=== PATIENT | female | born 1945 | race African-American/Black ===

== ENCOUNTER 2024-08-01 21:25 | Inpatient (IN) | payer OTHER, MEDICAID ==
[~2024-08-01] VITALS: Ht 157.5 cm; Wt 86.8 kg
[~2024-08-01 21:25] MED LIST: GABA-1308 PO; PRAV20TA3 PO
[2024-08-01] MEDS: AZITHROMYCIN 500MG/ 250ML 250 ML IV ONE (22:00)
[2024-08-01] MEDS: cefTRIAXone 1GM/50ML D5W 50 ML IV ONE (22:00)
[2024-08-01 22:24] LABS: Basophils # (auto) 0.1 10 ^3/uL (0-0.2); Basophils % (auto) 0.7 % (0.0-2.0); Eosinophils # (auto) 0.1 10 ^3/uL (0-0.8); Eosinophils % (auto) 0.4 % (0.0-7.0); Hemoglobin 8.5 g/dL (12.2-16.2); Lymphocytes # (auto) 2.8 10 ^3/uL (0.4-5.4)
[2024-08-01 22:26] LABS: Hematocrit 28.1 % (36.0-46.0); Lymphocytes % (auto) 15.9 % (10.0-50.0); Mean Corpuscular Hemoglobin 27.9 pg (28.0-32.0); Mean Corpuscular Hgb Conc. 30.2 g/dL (32.0-36.0); Mean Corpuscular Volume 92.4 fL (80.0-100.0); Monocytes # (auto) 1.2 10 ^3/uL (0-1.3); Neutrophils # (auto) 13.5 10 ^3/uL (1.6-8.6); Platelet Count (auto) 252 10^3/uL (140-450); Red Blood Cells 3.04 10^6/uL (4.0-5.20); Red Cell Distribution Width 19.1 % (11.8-14.3); White Blood Cell 17.8 10^3/uL (4.4-10.8)
[2024-08-01] MEDS: ALBUTEROL SULF 2.5 MG/0.5ML(0.5%) NEB SOLN NEB ONE (22:26)
[2024-08-01] MEDS: IPRATROPIUM BROM 0.5 MG/2.5ML INH SOL NEB ONE (22:27)
[2024-08-01 22:42] LABS: Albumin 3.6 g/dL (3.2-4.8); Alkaline Phosphatase 417 U/L (46-116); Anion Gap 8 (5-15); Aspartate Aminotransferase 23 U/L (13-40); Bilirubin, Total 0.2 mg/dL (0.2-1.0); Blood Urea Nitrogen 38 mg/dL (9-23); Calcium 8.6 mg/dL (8.7-10.4); Carbon Dioxide 28 mmol/L (20-31); Chloride 99 mmol/L (98-107); Glucose 132 mg/dL (74-106); Potassium 3.6 mmol/L (3.5-5.1); Sodium 135 mmol/L (136-145); Total Protein 6.9 g/dL (5.7-8.2)
[2024-08-01 22:44] LABS: Alanine Aminotransferase < 9 U/L (7-40)
[2024-08-01] MEDS: SODIUM CHLORIDE 0.9% 500 ML IV ONE (23:25)
[2024-08-01] MEDS: ACETAMINOPHEN 500 MG TAB PO ONE (23:29)
[2024-08-01 23:40] VITALS: PULSE 65; RESP 14; O2SAT 96
[2024-08-02] VITALS (27 sets, daily range): BP systolic 95–125; BP diastolic 18–45; PULSE 66–106; RESP 14–26; O2SAT 95–100
[2024-08-02] MEDS: NOREPINEPHRINE 8 MG/250ML KIT 250 ML IV SCH (02:00)
[2024-08-02] MEDS: ASPirin 325 MG TAB PO ONE (02:23)
[2024-08-02 02:39] LABS: COVID19 ANTIGEN SOFIA FIA NEGATIVE (NEGATIVE)
[2024-08-02 02:42] LABS: Rapid Influenza A Negative (Negative); Rapid Influenza B Negative (Negative)
[2024-08-02] MEDS ORDERED: ONDANSETRON HCL 4 MG/2 ML VIAL IV PRN (06:00)
[2024-08-02] MEDS ORDERED: NITROGLYCERIN 0.4 MG SL TAB SL PRN (06:00)
[2024-08-02] MEDS ORDERED: ALBUTEROL SULF 2.5 MG/0.5ML(0.5%) NEB SOLN NEB PRN (06:00)
[2024-08-02] MEDS ORDERED: DEXTROSE (50%) 50ML SYRG IV PRN (06:00)
[2024-08-02] MEDS ORDERED: MORPHINE SULFATE INJ 2 MG/ml SYRG IV PRN (06:00)
[2024-08-02] MEDS: ACCU-CHEK COMFORT CURVE STRIP VI SCH (06:29)
[2024-08-02] MEDS: InsuLIN REG 1unit/0.01ml Soln (100units/ml) SC SCH (06:31)
[2024-08-02] MEDS: ASPirin 81 mg TAB PO SCH (10:20)
[2024-08-02] MEDS ORDERED: VANCOMYCIN PER PHARMACY 0 MG IV SCH (12:30)
[2024-08-02] MEDS: MIDODRINE HCL 10 MG TAB PO ONE (14:23)
[2024-08-02] MEDS: MIDODRINE HCL 10 MG TAB PO SCH (18:31)
[2024-08-02] MEDS: VANCOMYCIN 1GM/200ML PREMIX 200 ML IV ONE (18:34)
[2024-08-02] MEDS: SODIUM CHL 0.9% 1000 ML BAG XX ONE (19:01)
[2024-08-02] MEDS: EPOETIN ALFA-EPBX 10,000 UNIT/1ML VIAL SC ONE (21:18)
[2024-08-02] MEDS: ATORVASTATIN 20 MG TAB PO SCH (21:34)
[2024-08-02] MEDS: cefTRIAXone 1GM/50ML D5W 50 ML IV SCH (21:34)
[2024-08-03] VITALS (34 sets, daily range): BP systolic 91–185; BP diastolic 28–73; PULSE 64–88; RESP 13–25; TEMP 97.5–98.8; O2SAT 93–100
[2024-08-03 04:00] LABS: Basophils # (auto) 0.1 10 ^3/uL (0-0.2); Basophils % (auto) 0.7 % (0.0-2.0); Eosinophils # (auto) 0.3 10 ^3/uL (0-0.8); Eosinophils % (auto) 2.1 % (0.0-7.0); Hematocrit 27.9 % (36.0-46.0); Hemoglobin 8.8 g/dL (12.2-16.2); Lymphocytes # (auto) 1.2 10 ^3/uL (0.4-5.4); Lymphocytes % (auto) 7.1 % (10.0-50.0); Mean Corpuscular Hemoglobin 28.7 pg (28.0-32.0); Mean Corpuscular Hgb Conc. 31.5 g/dL (32.0-36.0); Monocytes # (auto) 1.5 10 ^3/uL (0-1.3); Monocytes % (auto) 9.1 % (0.0-12.0); Neutrophils # (auto) 13.4 10 ^3/uL (1.6-8.6); Platelet Count (auto) 321 10^3/uL (140-450); Red Blood Cells 3.06 10^6/uL (4.0-5.20); Red Cell Distribution Width 19.4 % (11.8-14.3); White Blood Cell 16.6 10^3/uL (4.4-10.8)
[2024-08-03 04:15] LABS: Albumin 3.7 g/dL (3.2-4.8); Alkaline Phosphatase 400 U/L (46-116); Anion Gap 9 (5-15); Aspartate Aminotransferase 22 U/L (13-40); BUN/Creatinine Ratio 5.5 (10.0-20.0); Bilirubin, Total 0.2 mg/dL (0.2-1.0); Carbon Dioxide 31 mmol/L (20-31); Chloride 101 mmol/L (98-107); Glucose 132 mg/dL (74-106); Potassium 3.6 mmol/L (3.5-5.1); Sodium 141 mmol/L (136-145)
[2024-08-03 04:20] LABS: Alanine Aminotransferase < 9 U/L (7-40); Blood Urea Nitrogen 24 mg/dL (9-23)
[2024-08-03] MEDS: AZITHROMYCIN 500MG/ 250ML 250 ML IV SCH (09:37)
[2024-08-03] MEDS: POLYETHYLENE GLYCOL 17 GM PWDR PO ONE (12:31)
[2024-08-03] MEDS: MIDODRINE HCL 10 MG TAB PO SCH (18:11)
[2024-08-04] VITALS (8 sets, daily range): BP systolic 102–118; BP diastolic 36–61; PULSE 64–76; RESP 16–19; TEMP 97.5–99; O2SAT 90–96
[2024-08-04] MEDS ORDERED: CINA90TA10 PO (00:51)
[2024-08-04] MEDS ORDERED: CHOL20007 PO (00:51)
[2024-08-04] MEDS ORDERED: SEVE800T20 PO (00:51)
[2024-08-04] MEDS ORDERED: POLY335015 PO (00:51)
[2024-08-04] MEDS ORDERED: MIDO5TAB4 PO (00:51)
[2024-08-04 06:23] LABS: Basophils # (auto) 0.1 10 ^3/uL (0-0.2); Eosinophils # (auto) 0.3 10 ^3/uL (0-0.8); Eosinophils % (auto) 1.8 % (0.0-7.0); Hemoglobin 8.5 g/dL (12.2-16.2)
[2024-08-04 06:25] LABS: Basophils % (auto) 0.3 % (0.0-2.0); Hematocrit 27.2 % (36.0-46.0); Lymphocytes # (auto) 1.6 10 ^3/uL (0.4-5.4); Mean Corpuscular Hemoglobin 28.7 pg (28.0-32.0); Mean Corpuscular Hgb Conc. 31.4 g/dL (32.0-36.0); Mean Corpuscular Volume 91.5 fL (80.0-100.0); Monocytes # (auto) 1.5 10 ^3/uL (0-1.3); Monocytes % (auto) 10.5 % (0.0-12.0); Neutrophils # (auto) 10.9 10 ^3/uL (1.6-8.6); Neutrophils % (auto) 76.4 % (37.0-80.0); Platelet Count (auto) 314 10^3/uL (140-450); Red Blood Cells 2.97 10^6/uL (4.0-5.20); Red Cell Distribution Width 19.4 % (11.8-14.3); White Blood Cell 14.3 10^3/uL (4.4-10.8)
[2024-08-04 06:33] LABS: Anion Gap 10 (5-15); Carbon Dioxide 29 mmol/L (20-31); Chloride 103 mmol/L (98-107); Potassium 3.9 mmol/L (3.5-5.1); Sodium 142 mmol/L (136-145)
[2024-08-04 06:39] LABS: BUN/Creatinine Ratio 4.8 (10.0-20.0); Blood Urea Nitrogen 29 mg/dL (9-23); Glucose 87 mg/dL (74-106)
[2024-08-04] MEDS: AZITHROMYCIN 250 MG TAB PO SCH (09:51)
[2024-08-04] MEDS: VANCOMYCIN 500 MG in D5W 5% 100 ML IV ONE (16:40)
[2024-08-05] VITALS (8 sets, daily range): BP systolic 94–161; BP diastolic 35–61; PULSE 55–60; RESP 14–18; TEMP 98–98.6; O2SAT 92–98
[2024-08-05] MEDS: ACETAMINOPHEN 325 MG TAB PO PRN (04:08)
[2024-08-05 06:44] LABS: Chloride 102 mmol/L (98-107); Potassium 3.9 mmol/L (3.5-5.1); Sodium 142 mmol/L (136-145)
[2024-08-05 06:45] LABS: Anion Gap 10 (5-15); Carbon Dioxide 30 mmol/L (20-31)
[2024-08-05 06:51] LABS: BUN/Creatinine Ratio 5.6 (10.0-20.0); Glucose 89 mg/dL (74-106)
[2024-08-05 06:53] LABS: Blood Urea Nitrogen 41 mg/dL (9-23)
[2024-08-05 07:08] LABS: Eosinophils # (auto) 0.2 10 ^3/uL (0-0.8); Hemoglobin 8.4 g/dL (12.2-16.2)
[2024-08-05 07:09] LABS: Basophils # (auto) 0.1 10 ^3/uL (0-0.2); Basophils % (auto) 0.4 % (0.0-2.0); Eosinophils % (auto) 1.3 % (0.0-7.0); Hematocrit 27.3 % (36.0-46.0); Lymphocytes # (auto) 1.6 10 ^3/uL (0.4-5.4); Lymphocytes % (auto) 9.9 % (10.0-50.0); Mean Corpuscular Hemoglobin 28.6 pg (28.0-32.0); Mean Corpuscular Hgb Conc. 30.7 g/dL (32.0-36.0); Monocytes # (auto) 1.6 10 ^3/uL (0-1.3); Monocytes % (auto) 9.9 % (0.0-12.0); Neutrophils # (auto) 12.4 10 ^3/uL (1.6-8.6); Neutrophils % (auto) 78.5 % (37.0-80.0); Platelet Count (auto) 326 10^3/uL (140-450); Red Blood Cells 2.93 10^6/uL (4.0-5.20); Red Cell Distribution Width 19.1 % (11.8-14.3); White Blood Cell 15.8 10^3/uL (4.4-10.8)
[2024-08-06] VITALS (7 sets, daily range): BP systolic 104–150; BP diastolic 53–60; PULSE 50–79; RESP 16–21; TEMP 97.4–99; O2SAT 96–98
[2024-08-06 06:38] LABS: Basophils # (auto) 0 10 ^3/uL (0-0.2); Hemoglobin 8.8 g/dL (12.2-16.2); Mean Corpuscular Hgb Conc. 30.8 g/dL (32.0-36.0); Red Cell Distribution Width 19.2 % (11.8-14.3)
[2024-08-06 06:40] LABS: Anion Gap 6 (5-15); Carbon Dioxide 31 mmol/L (20-31); Chloride 102 mmol/L (98-107); Potassium 3.5 mmol/L (3.5-5.1); Sodium 139 mmol/L (136-145)
[2024-08-06 06:41] LABS: Basophils % (auto) 0.3 % (0.0-2.0); Eosinophils # (auto) 0.3 10 ^3/uL (0-0.8); Hematocrit 28.4 % (36.0-46.0); Lymphocytes # (auto) 1.3 10 ^3/uL (0.4-5.4); Lymphocytes % (auto) 9.7 % (10.0-50.0); Mean Corpuscular Hemoglobin 28.9 pg (28.0-32.0); Mean Corpuscular Volume 93.8 fL (80.0-100.0); Monocytes # (auto) 1.1 10 ^3/uL (0-1.3); Monocytes % (auto) 8.5 % (0.0-12.0); Neutrophils # (auto) 10.5 10 ^3/uL (1.6-8.6); Neutrophils % (auto) 79.5 % (37.0-80.0); Platelet Count (auto) 296 10^3/uL (140-450); Red Blood Cells 3.03 10^6/uL (4.0-5.20); White Blood Cell 13.2 10^3/uL (4.4-10.8)
[2024-08-06 06:46] LABS: BUN/Creatinine Ratio 4.3 (10.0-20.0); Blood Urea Nitrogen 21 mg/dL (9-23); Glucose 82 mg/dL (74-106)
[2024-08-06] MEDS ORDERED: SODIUM CHL 0.9% 1000 ML BAG XX ONE (07:00)
[2024-08-06] MEDS ORDERED: VANCOMYCIN 1GM/200ML PREMIX 200 ML IV ONE (16:00)
[2024-08-06] MEDS ORDERED: EPOETIN ALFA-EPBX 4,000 UNIT/ML VIAL SC ONE (21:00)
== END 2024-08-06 18:02 | disposition home or self-care (01) | DRG 871 ==
LOC: ER 21:25 → EDBD 21:25 → OVERFLOW 08-02 05:50 → TELE-EAST 08-03 22:21
PROVIDERS: ADMIT Nurse Practitioner; ATTEND Internal Medicine
PROC: 5A1D70Z Performance of Urinary Filtration, Intermittent, Less than 6 Hours Per Day (ICD-10-PCS; principal; 2024-08-02)
PROC: 5A1D70Z Performance of Urinary Filtration, Intermittent, Less than 6 Hours Per Day (ICD-10-PCS; 2024-08-05)
PROC: 5A1D70Z Performance of Urinary Filtration, Intermittent, Less than 6 Hours Per Day (ICD-10-PCS; 2024-08-06)
DX: A41.59 Other Gram-negative sepsis (principal); I21.A1 Myocardial infarction type 2; N18.6 End stage renal disease; I50.33 Acute on chronic diastolic (congestive) heart failure; J96.01 Acute respiratory failure with hypoxia; R65.21 Severe sepsis with septic shock; J15.69 Pneumonia due to other Gram-negative bacteria; J15.9 Unspecified bacterial pneumonia; I13.2 Hypertensive heart and chronic kidney disease with heart failure and with stage 5 chronic kidney disease, or end stage renal disease; E11.22 Type 2 diabetes mellitus with diabetic chronic kidney disease; D63.1 Anemia in chronic kidney disease; E66.01 Morbid (severe) obesity due to excess calories; I27.20 Pulmonary hypertension, unspecified; G90.89 Other disorders of autonomic nervous system; Z74.01 Bed confinement status; Z99.2 Dependence on renal dialysis; Z88.0 Allergy status to penicillin; Z79.4 Long term (current) use of insulin; Z68.35 Body mass index [BMI] 35.0-35.9, adult
CPT/HCPCS: 36415; 71045; 80048; 80053; 80202; 82962; 83605; 83880; 84484; 85025; 87040; 87081; 87340; 87426; 87804; 90935; 93005; 96365; 99291; G0378; J1815; J7060

== ENCOUNTER 2025-02-17 16:57 | Inpatient (IN) | payer OTHER, MEDICAID ==
[~2025-02-17] VITALS: Ht 157.5 cm; Wt 84.1 kg
[~2025-02-17 16:57] MED LIST changes: +CHOL20007 PO; +CINA90TA10 PO; +MIDO5TAB4 PO; +POLY335015 PO; +SEVE800T20 PO
--- NOTE | 2025-02-17 17:32 | ED.PDOC ---
History of Present Illness HPI Comments This is a 79-year-old female who comes in with chief complaint of generalized weakness as well as some shortness for breath. The patient is currently on dialysis and states that she was dialyzed yesterday. They took off approximately 1.5 L and the patient states that she has been getting more weakness at this point. She states that the weakness started a few days ago but worsened in the past 24 hours. According to the coffee attendant, the patient was unable to get up and walk around at this point. When the paramedics arrived, the patient's blood pressure was 86/44. The patient was given 300 cc of normal saline and the pressure came up to 105/41. EN route, the patient's Accu-Chek was 133. The patient was able to answer all questions appropriately but still states that she is short of breath as well as having some generalized weakness. Chief Complaint: Shortness of Breath Time Seen by MD: 17:00 Primary Care Provider: unknown Reviewed Notes: Nurses Notes, Unscrambler Notes, Medications, Allergies (Allergies to penicillin) Allergies: Coded Allergies: Penicillins (Verified Allergy, Unknown, HIVES, 06/28/24) Home Meds Reported Medications Polyethylene Glycol 3350 (Miralax) 17 Gm Pow, 17 GM PO, POW 08/04/24 Midodrine Hcl (Midodrine Hcl) 5 Mg Tab, 5 MG PO, TAB 08/04/24 Cinacalcet HCl (Cinacalcet Hydrochloride) 90 Mg Tab, 90 MG PO, TAB 08/04/24 Sevelamer Hydrochloride (Sevelamer Hydrochloride) 800 Mg Tab, 800 MG PO, TAB 08/04/24 Cholecalciferol (VITAMIN D3) 2,000 Unit Tab, 1 TAB PO DAILY, #30 TAB 5 Refills 08/04/24 Pravastatin Sodium (PRAVACHOL TABLET) 20 Mg Tb, 1 TAB PO QPM, #90 TAB 1 Refill 06/29/24 Gabapentin (Gabapentin) 100 Mg Cap, 100 MG PO BID for 30 Days, MG 06/29/24 Information Source: Patient, Emergency Med Personnel Mode of Arrival: EMS Severity: Moderate Timing: Days Duration: Since onset Prehospital treatment: Accucheck (133), Separator Inserter, IVF, Other (Normal saline bolus of 300 cc) Associated signs and symptoms Generalized weakness but no chest pain, nausea or vomiting Past Medical History PAST MEDICAL HISTORY: CHF, DM, ESRD, HTN Surgical History (Other): Left knee surgery, dialysis shunt 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 History Family History Family History: Family hx of DM, Family hx of Cancer Social History Smoker: Non-Smoker Alcohol: Denies ETOH Use Drugs: Denies Drug Use Lives In: Home, Assisted Care Constitutional: reports: weakness; denies: chills, diaphoresis, fatigue, fever, malaise, sweats, others EENTM: denies: blurred vision, double vision, ear bleeding, ear discharge, ear drainage, ear pain, ear ringing, eye pain, eye redness, hearing loss, mouth pain, mouth swelling, nasal discharge, nose bleeding, nose congestion, nose pain, photophobia, tearing, throat pain, throat swelling, voice changes, others Respiratory: reports: shortness of breath; denies: cough, hemoptysis, orthopnea, SOB at rest, SOB with excertion, stridor, wheezing, others Cardiovascular: denies: chest pain, dizzy spells, diaphoresis, Dyspnea on exertion, edema, irregular heart beat, left arm pain, lightheadedness, palpitations, PND, syncope, others Gastrointestinal: denies: abdomen distended, abdominal pain, blood streaked bowels, constipated, diarrhea, dysphagia, difficulty swallowing, hematemesis, melena, nausea, poor appetite, poor fluid intake, rectal bleeding, rectal pain, vomiting, others Genitourinary: denies: abnormal vagina bleeding, burning, dyspareunia, dysuria, flank pain, frequency, hematuria, incontinence, pain, , vagina discharge, urgency, others Neurological: denies: dizziness, fainting, headache, left sided numbness, left sided weakness, numbness, paresthesia, pre-existing deficit, right sided numbness, right sided weakness, seizure, speech problems, tingling, tremors, weakness, others Musculoskeletal: denies: back pain, gout, joint pain, joint swelling, muscle pain, muscle stiffness, neck pain, others Integumetry: denies: bruises, change in color, change in hair/nails, dryness, laceration, lesions, lumps, rash, wounds, others Allergic/Immunocompromised: denies: Difficulty Healing, Frequent Infections, Hives, Itching, others Hematologic/Lymphatic: denies: anemia, blood clots, easy bleeding, easy bruising, swollen glands, others Endocrine: denies: excessive hunger, excessive sweating, excessive thirst, excessive urination, flushing, intolerance to cold, intolerance to heat, unexplained weight gain, unexplained weight loss, others Psychiatric: denies: anxiety, bipolar disorder, depression, hopeless, panic disorder, schizophrenia, sleepless, suicidal, others Physical Exam General Appearance: Moderate Distress HEENT: Pale Conjuntivae (L), Pale Conjuntivae (R), Pharynx Normal, TMs Normal Neck: Full Range of Motion, Non-Tender, Normal, Normal Inspection Respiratory: Chest Non-Tender, Lungs Clear, No Accessory Muscle Use, No Respiratory Distress, Normal Breath Sounds Cardiovascular: No Edema, No JVD, No Murmur, No Gallop, Normal Peripheral Pulses, Regular Rate/Rhythm Breast Exam: Deferred Gastrointestinal: No Organomegaly, Non Tender, No Pulsatile Mass, Normal Bowel Sounds, Soft Genitalia: Deferred Pelvic: Deferred Rectal: Deferred Extremities: No calf tenderness, Normal capillary refill, No pedal edema, Other (Fistula to the left arm) Musculoskeletal : Apperance: Normal Neurologic: ct manager II-XII nml as Tested, Motor Weakness, Normal Affect, Normal Mood, No Sensory Deficits Cerebellar Function: Unable to Test Reflexes: Normal Skin: Dry, Pallor, Warm Lymphatic: No Adenopathy Was a procedure done? Was a procedure done?: No EKG EKG : Pulse Rate (adult): 77 [place]: LAD Cardiac Rhythm: NSR ST: Nonsp (Poor R-wave progression) Differential Dx Considerations may include: Generalized weakness, sepsis, UTI, dehydration X-Ray, Labs, Meds, VS Vital Signs Date Time Temp Pulse Resp B/P (MAP) Pulse Ox O2 Delivery O2 Flow Rate FiO2 02/17/25 18:10 71 28 97 Nasal Cannula* 2 28 02/17/25 17:55 98.4 71 28 93/36 (55) 97 98.4 02/17/25 17:32 77 02/17/25 17:20 74 02/17/25 17:04 98.4 75 20 99/41 (60) 97 98.4 02/17/25 17:01 77 Lab Test 02/17/25 20:50 02/17/25 18:28 02/17/25 17:25 Range/Units Troponin I High Sensitivity 46 *H 51 *H 60 *H </=34 ng/L White Blood Count 9.6 4.4-10.8 10^3/uL Red Blood Count 2.85 L 4.0-5.20 10^6/uL Hemoglobin 8.0 L 12.2-16.2 g/dL Hematocrit 26.2 L 36.0-46.0 % Mean Corpuscular Volume 91.6 80.0-100.0 fL Mean Corpuscular Hemoglobin 28.1 28.0-32.0 pg Mean Corpuscular Hemoglobin Concent 30.6 L 32.0-36.0 g/dL Red Cell Distribution Width 18.8 H 11.8-14.3 % Platelet Count 269 140-450 10^3/uL Mean Platelet Volume 7.9 6.9-10.8 fL Neutrophils (%) (Auto) 76.3 37.0-80.0 % Lymphocytes (%) (Auto) 12.4 10.0-50.0 % Monocytes (%) (Auto) 9.8 0.0-12.0 % Eosinophils (%) (Auto) 1.1 0.0-7.0 % Basophils (%) (Auto) 0.4 0.0-2.0 % Neutrophils # (Auto) 7.3 1.6-8.6 10 ^3/uL Lymphocytes # (Auto) 1.2 0.4-5.4 10 ^3/uL Monocytes # (Auto) 0.9 0-1.3 10 ^3/uL Eosinophils # (Auto) 0.1 0-0.8 10 ^3/uL Basophils # (Auto) 0 0-0.2 10 ^3/uL Nucleated Red Blood Cells 0.2 % Sodium Level 142 136-145 mmol/L Potassium Level 2.7 L 3.5-5.1 mmol/L Chloride Level 98 98-107 mmol/L Carbon Dioxide Level 31 20-31 mmol/L Anion Gap 13 5-15 Blood Urea Nitrogen 18 9-23 mg/dL Creatinine 4.01 H 0.550-1.02 mg/dL Glomerular Filtration Rate Calc 11 >90 mL/min BUN/Creatinine Ratio 4.5 L 10.0-20.0 Serum Glucose 107 H 74-106 mg/dL Calcium Level 8.6 L 8.7-10.4 mg/dL B-Type Natriuretic Peptide 247.53 0-100 pg/mL EXAMINATION: AP portable chest radiograph IMPRESSION: 1. Cardiomegaly with mild interstitial pulmonary edema with no pleural effusion 2. The osseous structures appears to be mildly dense suggesting a possible early blastic changes The CBC shows a hemoglobin of 8 and hematocrit of 26.2 The patient's troponin levels are elevated at 60, 51 and 46 respectively At this time, the chemistry panel shows a potassium of 2.7 The patient was being given a potassium K rider The BNP is 247.53 At this time we are going to admit the patient to the hospitalist We did contact [place] and they gave us authorization for admission The authorization #[id number] IV Hep-Lock was established Images Reviewed?: Images reviewed and evaluated by me Time of 1ST Reevaluation: 17:32 Reevaluation 1ST: Unchanged Patient Education/Counseling: Diagnosis, Treatment, Prognosis Family Education/Counseling: No Family Present Departure 1 Departure Time of Disposition: 21:45 Impression: Primary Impression: End stage renal disease on dialysis Additional Impressions: Hypotension Qualified Codes: I95.9 - Hypotension, unspecified Generalized weakness Disposition: ADMITTED INPATIENT Admit to: Tele Condition: Fair Critical Care Note Critical Care Time?: Yes (35 min-critical care time only) Stability Stability form required: Yes Unstable for transfer: Telemetry monitoring (Telemetry monitoring required), ED Physician Assesment (Clinical assesment) Heart Score Heart Score: Heart Score Response (Comments) Value History N/A 0 EKG N/A 0 Age N/A 0 Risk Factors N/A 0 Troponin N/A 0 Total 0 I personally scribed for SHELBY SMALL MD ([email or web address]) on 02/17/25 at 18:33. Electronically submitted by Alyce Marsh (MARY). SHELBY SMALL MD February 17, 2025 17:32
[2025-02-17 17:47] LABS: Basophils # (auto) 0 10 ^3/uL (0-0.2); Basophils % (auto) 0.4 % (0.0-2.0); Eosinophils # (auto) 0.1 10 ^3/uL (0-0.8); Eosinophils % (auto) 1.1 % (0.0-7.0); Hematocrit 26.2 % (36.0-46.0); Mean Corpuscular Hgb Conc. 30.6 g/dL (32.0-36.0); Nucleated Red Blood Cells % 0.2 %
[2025-02-17 17:48] LABS: Lymphocytes # (auto) 1.2 10 ^3/uL (0.4-5.4); Lymphocytes % (auto) 12.4 % (10.0-50.0); Mean Corpuscular Hemoglobin 28.1 pg (28.0-32.0); Mean Corpuscular Volume 91.6 fL (80.0-100.0); Monocytes # (auto) 0.9 10 ^3/uL (0-1.3); Monocytes % (auto) 9.8 % (0.0-12.0); Neutrophils # (auto) 7.3 10 ^3/uL (1.6-8.6); Neutrophils % (auto) 76.3 % (37.0-80.0); Platelet Count (auto) 269 10^3/uL (140-450); Red Blood Cells 2.85 10^6/uL (4.0-5.20); Red Cell Distribution Width 18.8 % (11.8-14.3); White Blood Cell 9.6 10^3/uL (4.4-10.8)
[2025-02-17 17:51] LABS: Chloride 98 mmol/L (98-107); Sodium 142 mmol/L (136-145)
[2025-02-17 17:53] LABS: Anion Gap 13 (5-15)
--- NOTE | 2025-02-17 17:54 | ECG ---
[facility] Test Date: 2025-02-17 Test Time: 17:01:51 Pat Name: TERENCE NEIL Department: ED Room: Gender: F Keg Header: gp : 1945 Requested By: SHELBY SMALL Order Number: [id number] Reading MD: Tomas Flores Measurements Intervals [place] Rate: 77 P: -66 [place]: 341 QRS: -37 QRSD: 101 T: 107 QT: 444 QTc: 503 Interpretive Statements Sinus or ectopic atrial rhythm Atrial premature complexes Prolonged [place] interval Left axis deviation Abnormal R-wave progression, late transition Abnormal T, consider ischemia, lateral leads Prolonged QT interval Electronically Signed On 02-17-2025 21:05:42 PDT by Tomas Flores Please click the below link to view image of tracing.
[2025-02-17 17:58] LABS: BUN/Creatinine Ratio 4.5 (10.0-20.0); Blood Urea Nitrogen 18 mg/dL (9-23)
[2025-02-17 18:05] LABS: Carbon Dioxide 31 mmol/L (20-31); Potassium 2.7 mmol/L (3.5-5.1)
[2025-02-17 18:06] LABS: Calcium 8.6 mg/dL (8.7-10.4); Glucose 107 mg/dL (74-106)
--- NOTE | 2025-02-17 18:08 | DVH ---
EXAMINATION: AP portable chest radiograph CLINICAL HISTORY: sob COMPARISON: XY CHEST PORTABLE on DOS: 08/03/24, XY CHEST PORTABLE on DOS: 08/01/24, XY CHEST PORTABLE on DOS: 06/28/24 FINDINGS: Negative AP chest. There is cardiomegaly with mild interstitial pulmonary edema. There is no evidence of airspace consol idation. There is uncoiling atherosclerotic change thoracic aorta. The bony thorax demonstrate mildly blastic changes. There is osteoarthropathy of both AC joint.. IMPRESSION: 1. Cardiomegaly with mild interstitial pulmonary edema with no pleural effusion 2. The osseous structures appears to be mildly dense suggesting a possible early blastic changes
[2025-02-17 18:10] VITALS: PULSE 71; RESP 28; O2SAT 97
[2025-02-17 19:05] VITALS: PULSE 85; RESP 20; O2SAT 97
[2025-02-17] MEDS ORDERED: HYDROcodone-ACET 5/325MG TAB PO PRN (22:15)
[2025-02-17] MEDS ORDERED: ACETAMINOPHEN 325 MG TAB PO PRN (22:15)
[2025-02-17] MEDS ORDERED: DOCUSATE SOD 100 MG CAP PO PRN (22:15)
[2025-02-17] MEDS ORDERED: ONDANSETRON HCL 4 MG/2 ML VIAL IV PRN (22:15)
[2025-02-17] MEDS ORDERED: DEXTROSE (50%) 50ML SYRG IV PRN (22:15)
[2025-02-17] MEDS: POTASSIUM CHL 20MEQ/100ML 100 ML IV ONE (22:15)
[2025-02-17] MEDS: MIDODRINE HCL 10 MG TAB PO ONE (22:15)
[2025-02-17] MEDS ORDERED: NITROGLYCERIN 0.4 MG SL TAB SL PRN (23:30)
[2025-02-17] MEDS ORDERED: MORPHINE SULFATE INJ 2 MG/ml SYRG IV PRN (23:30)
--- NOTE | 2025-02-17 23:30 | DVHHP2 ---
History of Present Illness Reason for Visit: End stage renal disease on dialysis History of Present Illness The patient is a 79-year-old female with past medical history of CHF, DM, hypertension, and end-stage renal disease on hemodialysis presented to [facility] ED with complaint of shortness of breaths. Patient reports symptoms progressively get worse with generalized weakness getting worse that prompted this visit. Patient was dialyzed yesterday and took off approximately 1.5 L, unable to get up and walk around at this point, patient's blood pressure was 86/44. The patient was given 300 cc of normal saline and the pressure came up to 105/41. Patient was seen and evaluated in the ED, laboratory data shows blood pressure 9.6, hemoglobin 8.0, hematocrit 26.2, platelets 269, sodium 142, potassium 2.7, BUN 18, creatinine 4.01, glucose 107, troponin 46, calcium 8.6, BNP 247.53, blood pressure 110/41, heart rate 80, temperature 97.8 F, O2 saturation 97% on oxygen. Please see medication orders section in the computer. On my assessment, patient denied chest pain, no headache, no dizziness, no diaphoresis, no shortness of breath, no nausea, no vomiting, no fever, no chills. Patient was admitted for further evaluation and medical management. Past Medical History CHF, DM, ESRD, HTN Past Surgical History Left knee surgery, Dialysis shunt Family History Reviewed, noncontributory to the management of this case. Past Social History The patient lives at home, denies smoking, alcohol or illicit drugs abuse. Review of Systems Constitutional: Yes: Weakness; No: Fever, Chills, Sweats, Malaise, Other Eyes: No: Pain, Vision change, Conjunctivae inflammation, Eyelid inflammation, Other, Redness ENT: No: Ear pain, Ear discharge, Nose pain, Nose discharge, Nose congestion, Mouth pain, Mouth swelling, Throat pain, Throat swelling, Other Respiratory: Shortness of breath; No: Cough, Dry, SOB with excertion, Wheezing, Hemoptysis, Pleuritic Pain, Sputum, Wheezing, Other Cardiovascular: No: Chest Pain, Palpitations, Orthopnea, Paroxysmal Noc. Dyspnea, Edema, Lt Headedness, Other Gastrointestinal: No: Nausea, Vomiting, Abdominal Pain, Diarrhea, Constipation, Melena, Hematochezia, Other Genitourinary: No Dysuria, No Frequency, No Incontinence, No Hematuria, No Retention, No Other Musculoskeletal: No: other, neck pain, shoulder pain, arm pain, back pain, hand pain, leg pain, foot pain Skin: No: Rash, Lesions, Jaundice, Bruising, Other Neurological: No: Weakness, Numbness, Incoordination, Change in speech, Confusion, Seizures, Other Allergies: Coded Allergies: Penicillins (Verified Allergy, Unknown, HIVES, 06/28/24) Medications Current Medications Medications Dose Ordered Sig/Samia Route Start Time Stop Time Status Last Admin Dose Admin Midodrine 10 mg TID@0600,1200,1800 PO 02/18/25 06:00 Multivit/Ca Carb/ B Cmplx/FA/Prenat 1 tab DAILY PO 02/18/25 10:00 Sevelamer HCl 800 mg TIDWM PO 02/18/25 08:00 UNV Calcium Acetate 667 mg TIDWMEALS PO 02/18/25 08:00 UNV Diagnostic Test (Pha) 1 strip ACHS 02/18/25 07:00 Insulin Human Regular ACHS SC 02/18/25 07:00 Dextrose 50 ml UD PRN IV 02/17/25 22:15 Sodium Chloride 10 ml Q8HR IV 02/18/25 06:00 Acetaminophen/ Hydrocodone Bitart 1 tab Q4HP PRN PO 02/17/25 22:15 Ondansetron HCl 4 mg Q4HP PRN IV 02/17/25 22:15 Docusate Sodium 100 mg BIDPRN PRN PO 02/17/25 22:15 Acetaminophen 650 mg Q6HP PRN PO 02/17/25 22:15 Atorvastatin Calcium 10 mg HS PO 02/18/25 22:00 Aspirin 81 mg DAILY PO 02/18/25 10:00 Exam Vital Signs Vital Signs Date Time Temp Pulse Resp B/P (MAP) Pulse Ox O2 Delivery O2 Flow Rate FiO2 02/17/25 21:30 97.8 80 19 110/41 (64) 98 97.8 02/17/25 19:05 Nasal Cannula* 2 28 General Appearance: Alert, Oriented X3, Cooperative, No acute distress HEENT: Atraumatic, PERRLA, EOMI, Mucous membr. moist/pink Respiratory: Normal air movement, Other (Diminished breath sounds) Cardiovascular: Regular rate, Normal S1, Normal S2, No murmurs Abdominal: Normal bowel sounds, Soft, No tenderness, No hepatospenomegaly, No masses Extremities: No clubbing, No cyanosis, No edema, Normal pulses, No tenderness/swelling Skin: No rashes, No breakdown, No significant lesion Neuro: Normal speech, Normal tone, Sensation intact, Cranial nerves 3-12 NL, Reflexes 2+, Other (Generalized weakness) Psych/Mental Status: Mental status NL, Mood NL Labs/Xrays Labs Test 02/17/25 20:50 02/17/25 17:25 Range/Units Troponin I High Sensitivity 46 *H </=34 ng/L White Blood Count 9.6 4.4-10.8 10^3/uL Red Blood Count 2.85 L 4.0-5.20 10^6/uL Hemoglobin 8.0 L 12.2-16.2 g/dL Hematocrit 26.2 L 36.0-46.0 % Mean Corpuscular Volume 91.6 80.0-100.0 fL Mean Corpuscular Hemoglobin 28.1 28.0-32.0 pg Mean Corpuscular Hemoglobin Concent 30.6 L 32.0-36.0 g/dL Red Cell Distribution Width 18.8 H 11.8-14.3 % Platelet Count 269 140-450 10^3/uL Mean Platelet Volume 7.9 6.9-10.8 fL Neutrophils (%) (Auto) 76.3 37.0-80.0 % Lymphocytes (%) (Auto) 12.4 10.0-50.0 % Monocytes (%) (Auto) 9.8 0.0-12.0 % Eosinophils (%) (Auto) 1.1 0.0-7.0 % Basophils (%) (Auto) 0.4 0.0-2.0 % Neutrophils # (Auto) 7.3 1.6-8.6 10 ^3/uL Lymphocytes # (Auto) 1.2 0.4-5.4 10 ^3/uL Monocytes # (Auto) 0.9 0-1.3 10 ^3/uL Eosinophils # (Auto) 0.1 0-0.8 10 ^3/uL Basophils # (Auto) 0 0-0.2 10 ^3/uL Nucleated Red Blood Cells 0.2 % Sodium Level 142 136-145 mmol/L Potassium Level 2.7 L 3.5-5.1 mmol/L Chloride Level 98 98-107 mmol/L Carbon Dioxide Level 31 20-31 mmol/L Anion Gap 13 5-15 Blood Urea Nitrogen 18 9-23 mg/dL Creatinine 4.01 H 0.550-1.02 mg/dL Glomerular Filtration Rate Calc 11 >90 mL/min BUN/Creatinine Ratio 4.5 L 10.0-20.0 Serum Glucose 107 H 74-106 mg/dL Calcium Level 8.6 L 8.7-10.4 mg/dL B-Type Natriuretic Peptide 247.53 0-100 pg/mL PATIENT: TERENCE NEIL ACCT: [id number] UNIT: [id number] : 1945 LOC: ER ROOM / BED: / AGE / SEX: 79 / F ADM STATUS: REG ER SERVICE 1712 ORDERING PHYSICIAN: SHELBY SMALL MD PROCEDURE(s): CXRP - CHEST PORTABLE REASON: sob ORDER NUMBER(s): [id number], ACCESSION NUMBER(s): [id number] EXAMINATION: AP portable chest radiograph CLINICAL HISTORY: sob COMPARISON: XY CHEST PORTABLE on DOS: 08/03/24, XY CHEST PORTABLE on DOS: 08/01/24, XY CHEST PORTABLE on DOS: 06/28/24 FINDINGS: Negative AP chest. There is cardiomegaly with mild interstitial pulmonary edema. There is no evidence of airspace consolidation. There is uncoiling atherosclerotic change thoracic aorta. The bony thorax demonstrate mildly blastic changes. There is osteoarthropathy of both AC joint.. IMPRESSION: 1. Cardiomegaly with mild interstitial pulmonary edema with no pleural effusion 2. The osseous structures appears to be mildly dense suggesting a possible early blastic changes Assessment/Plan Assessment/Plan End stage renal disease on dialysis Hypotension Hypotension, unspecified Generalized weakness Plan 1. Admit to telemetry unit 2. Breathing treatment 3. Pain control management 4. Management of fluids and electrolytes 5. Consultation for Nephrology 6. Diagnostic tests chest x-ray 7. DVT prophylaxis-on SCDs 8. Repeat labs CBC, CMP in a.m. 9. Continue with current medical management 10. Treatment plan discussed with patient and RN. Patient verbalized understanding. Plan discussed with: Patient, Other (RN) My Orders Orders - NATALYA STRONG DNP Procedure Category Date Status Time *Dr. Cade Group CONS 02/17/25 Transmitted -[place] 22:15 Midodrine Tablet PHA 02/18/25 In Process (Proamatine Tablet) 06:00 B-Complex W/ C & PHA 02/18/25 In Process Folic Tablet 10:00 Sevelamer (Renagel) PHA 02/18/25 Pending 08:00 Calcium Acetate PHA 02/18/25 Pending Capsule ([place] 08:00 Glucose Blood PHA 02/18/25 In Process (Accu-Chek Comfort 07:00 Insulin R (Human) PHA 02/18/25 In Process (Insulin R) 07:00 Dextrose 50% Syringe PHA 02/17/25 In Process 22:15 Allergies AMAN 02/17/25 In Process 22:15 Code Status CODE 02/17/25 Transmitted 22:15 Renal DIET 02/18/25 Transmitted Standard(2gna,3gk,Lopho) Breakfast Sodium Chloride Lock PHA 02/18/25 In Process (Saline Lock Ns) 06:00 Oxygen Per Hour RT 02/17/25 Transmitted 22:15 Hydrocodone-Acet PHA 02/17/25 In Process 5/325mg Tab ([place] 22:15 Ondansetron Hcl PHA 02/17/25 In Process (Zofran) 22:15 Docusate Sodium PHA 02/17/25 In Process Capsule ([place] 22:15 Complete Blood Count LAB 02/18/25 Verified 04:00 Comprehensive LAB 02/18/25 Verified Metabolic Panel 04:00 Condition: Serious AMAN 02/17/25 In Process 22:15 Acetaminophen Tablet PHA 02/17/25 In Process (Tylenol Tablet) 22:15 Bedrest With Bathroom AMAN 02/17/25 In Process Privileg 22:15 Sequential AMAN 02/17/25 In Process Compression Device Atorvastatin (Lipitor) PHA 02/18/25 In Process 22:00 Aspirin Enteric PHA 02/18/25 In Process Coated Tablet 10:00 Problem List: (1) End stage renal disease on dialysis (2) Hypotension (3) Hypotension, unspecified (4) Generalized weakness Date of Service: February 17, 2025 Billing Provider: NATALYA STRONG DNP Common Visit Codes: 98875-RNCWBCP INP/OBS CARE (HIGH) NATALYA STRONG DNP February 17, 2025 23:30
[2025-02-17] MEDS: POTASSIUM CHL 20 Meq TABLET PO ONE (23:40)
[2025-02-17] MEDS: ASPirin-EC 325mg tab PO ONE (23:40)
[2025-02-17] MEDS: SODIUM CHL 0.9% 100 ML IV ONE (23:45)
[2025-02-17] MEDS: POTASSIUM CHL 20MEQ/50ML 50 ML IV ONE (23:45)
[2025-02-18] VITALS (9 sets, daily range): BP systolic 96–104; BP diastolic 39–45; PULSE 3–75; RESP 16; TEMP 97.8–98.7; O2SAT 92–99
[2025-02-18] MEDS ORDERED: VANCOMYCIN PER PHARMACY 0 MG IV SCH (01:45)
--- NOTE | 2025-02-18 04:45 | DVH ---
EXAM: CT CT AB PEL WO CON-NO ORAL OR IV HISTORY: abdominal pain and tenderness COMPARISON: None TECHNIQUE: Helical CT images of the abdomen and pelvis were performed without IV contrast. Sagittal a nd coronal reformatted images were obtained. This CT exam was performed using one or more of the foll owing dose reduction techniques: Automated exposure control, adjustment of the mA and/or kv according to patient size, or the use of iterative reconstruction techniques. Radiation Dose: Abdomen/Pelvis: CTDIvol 23.88 mGy, DLP 1270.41 mGy*cm. FINDINGS: CT abdomen: There are interstitial opacities in the lung bases. There are trace bilateral pleural eff usions. There are masses versus masslike consolidation in the right middle lobe and bilateral lower l obes. The heart is enlarged. There are coronary artery calcifications. The central pulmonary arteri es are ectatic, not fully imaged here. 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 There is low volume free fluid in the upper abdomen. There is 4 cm lamellated gallstone (image 44, series 2). There are bilateral renal simple and complex cysts. There are bilateral renal subcentimeter nonobstructing dewayne culi. There is bilateral renal cortical atrophy. There is a left adrenal nodule measuring 3.1 cm (i mage 33, series 2). The noncontrast spleen, pancreas, right adrenal gland are unremarkable. No abdomi nal aortic aneurysm. CT pelvis: Evaluation of the lower pelvis is limited secondary to beam hardening artifact from a left total hip arthroplasty. No abnormal bowel dilatation or free air. There is loculated fluid in the pe lvis. There are sigmoid colon diverticula without evidence of acute diverticulitis. The appendix is not definitely visualized, and there is no specific evidence of acute appendicitis. There is questio n of a mass along the anterior pelvic wall midline versus appearance due to scarring (image 70, serie s 2). There is nodular fat stranding in the mesenteric fat of the left mid to lower abdomen. There is a diffusely mottled and osteopenic appearance throughout the visualized bony structures. There may b e a lytic metastasis of the right sacrum. There is advanced lumbar degenerative disc disease. IMPRESSION: 1. Metastatic disease involving the liver, lung bases, left adrenal gland, and left mid to lower abdo minopelvic mesentery. There may be neoplastic mass versus scarring in the anterior pelvic wall midlin e. Additionally, there is diffuse irregular appearance of the bony structures which may be due to met astatic disease and/or metabolic disease. 2. Cardiomegaly and interstitial prominence in the lung bases suggestive of CHF. 3. Bilateral renal cortical atrophy, simple and complex cysts, and nonobstructing nephrolithiasis. 4. Loculated fluid in the pelvis and low volume free fluid in the upper abdomen. 5. Sigmoid colon diverticulosis without definite evidence of acute diverticulitis.
[2025-02-18] MEDS: SODIUM CHLOR 0.9% PF (SALINE LOCK) 10ML VIAL/SYR IV SCH (05:27)
[2025-02-18] MEDS: MIDODRINE HCL 10 MG TAB PO SCH (05:27)
[2025-02-18] MEDS: ACCU-CHEK COMFORT CURVE STRIP VI SCH (05:28)
[2025-02-18] MEDS: InsuLIN REG 1unit/0.01ml Soln (100units/ml) SC SCH (05:28)
[2025-02-18 06:49] LABS: Anion Gap 12 (5-15); BUN/Creatinine Ratio 4.3 (10.0-20.0); Blood Urea Nitrogen 20 mg/dL (9-23); Calcium 9.1 mg/dL (8.7-10.4); Carbon Dioxide 29 mmol/L (20-31); Chloride 103 mmol/L (98-107); Glucose 80 mg/dL (74-106); Sodium 144 mmol/L (136-145); Total Protein 6.4 g/dL (5.7-8.2)
[2025-02-18 06:50] LABS: Albumin 3.7 g/dL (3.2-4.8); Aspartate Aminotransferase 33 U/L (13-40); Bilirubin, Total 0.4 mg/dL (0.2-1.0)
[2025-02-18 06:54] LABS: Alanine Aminotransferase < 9 U/L (7-40); Alkaline Phosphatase 456 U/L (46-116); Potassium 3.4 mmol/L (3.5-5.1)
[2025-02-18 06:56] LABS: Basophils # (auto) 0 10 ^3/uL (0-0.2); Basophils % (auto) 0.6 % (0.0-2.0); Eosinophils # (auto) 0.1 10 ^3/uL (0-0.8); Eosinophils % (auto) 1.3 % (0.0-7.0); Hematocrit 26.2 % (36.0-46.0); Lymphocytes % (auto) 12.6 % (10.0-50.0); Mean Corpuscular Hemoglobin 28.4 pg (28.0-32.0); Mean Corpuscular Hgb Conc. 30.6 g/dL (32.0-36.0); Mean Corpuscular Volume 92.9 fL (80.0-100.0); Monocytes # (auto) 0.9 10 ^3/uL (0-1.3); Monocytes % (auto) 11.5 % (0.0-12.0); Neutrophils # (auto) 6.1 10 ^3/uL (1.6-8.6); Nucleated Red Blood Cells % 0.2 %; Platelet Count (auto) 258 10^3/uL (140-450); Red Blood Cells 2.82 10^6/uL (4.0-5.20); Red Cell Distribution Width 18.5 % (11.8-14.3); White Blood Cell 8.2 10^3/uL (4.4-10.8)
[2025-02-18] MEDS: CALCIUM ACETATE 667 MG CAP PO SCH (08:31)
[2025-02-18] MEDS: SEVELAMER 800 MG TAB PO SCH (08:31)
[2025-02-18] MEDS: B-COMPLEX W/ C & FOLIC ACID(NEPHROVITE TAB) PO SCH (10:39)
[2025-02-18] MEDS: ASPirin-EC 81 mg tab PO SCH (10:40)
[2025-02-18] MEDS: SODIUM CHL 0.9% 1000 ML BAG XX ONE (11:45)
--- NOTE | 2025-02-18 15:15 | DVHINCON2 ---
Date of service: February 18, 2025 Referring Physician Len GROVE Reason for Consultation End-stage renal disease. History of Present Illness 79-year-old patient with significant history of end-stage renal disease on hemodialysis Friday with last dialysis on Friday, diabetes type 2, diabetic nephropathy, hypertension, CHF, chronic hypoxic respiratory failure on 2-3 L of oxygen at home who presents to the hospital complaining of shortness of breath as well as for aggressive generalized weakness after dialysis got worse. Her UF was 1.5 L on Friday. She denies any fever chills but her blood pressure was around 86/40 for which he came in after 300 cc bolus improved to one 0 /. Laboratory data revealed finding consistent with end-stage renal disease, elevated BNP, anemia, hypokalemia of 2.7 mEq Past Medical History Diabetes type 2, hypertension, end-stage renal disease on hemodialysis, chronic hypoxic respiratory failure Past Surgical History Av fistula creation Allergies: Coded Allergies: Penicillins (Verified Allergy, Unknown, HIVES, 06/28/24) Home Meds Reported Medications Polyethylene Glycol 3350 (Miralax) 17 Gm Pow, 17 GM PO, POW 08/04/24 Midodrine Hcl (Midodrine Hcl) 5 Mg Tab, 5 MG PO, TAB 08/04/24 Cinacalcet HCl (Cinacalcet Hydrochloride) 90 Mg Tab, 90 MG PO, TAB 08/04/24 Sevelamer Hydrochloride (Sevelamer Hydrochloride) 800 Mg Tab, 800 MG PO, TAB 08/04/24 Cholecalciferol (VITAMIN D3) 2,000 Unit Tab, 1 TAB PO DAILY, #30 TAB 5 Refills 08/04/24 Pravastatin Sodium (PRAVACHOL TABLET) 20 Mg Tb, 1 TAB PO QPM, #90 TAB 1 Refill 06/29/24 Gabapentin (Gabapentin) 100 Mg Cap, 100 MG PO BID for 30 Days, MG 06/29/24 Current Medications Current Medications Medications (Trade) Dose Ordered Sig/Samia Route PRN Reason Start Time Stop Time Status Last Admin Midodrine (Proamatine Tablet) 10 mg TID@0600,1200,1800 PO 02/18/25 06:00 02/18/25 12:05 Multivit/Ca Carb/ B Cmplx/FA/Prenat (Nephro-Pattie Tablet) 1 tab DAILY PO 02/18/25 10:00 02/18/25 10:39 Sevelamer HCl (Renagel) 800 mg TIDWM PO 02/18/25 08:00 02/18/25 12:05 Calcium Acetate (Phoslo Capsule) 667 mg TIDWMEALS PO 02/18/25 08:00 02/18/25 12:05 Diagnostic Test (Pha) (Accu-Chek Comfort Curve T) 1 strip ACHS 02/18/25 07:00 02/18/25 11:02 Insulin Human Regular (InsuLIN R) ACHS SC 02/18/25 07:00 Dextrose 50 ml UD PRN IV Blood Sugar LESS THAN 60 02/17/25 22:15 Sodium Chloride (Saline Lock Ns) 10 ml Q8HR IV 02/18/25 06:00 02/18/25 12:05 Acetaminophen/ Hydrocodone Bitart ([place] 5/325MG Tab) 1 tab Q4HP PRN PO MODERATE PAIN (4-6 PAIN SCALE) 02/17/25 22:15 Ondansetron HCl (Zofran) 4 mg Q4HP PRN IV NAUSEA / VOMITING 02/17/25 22:15 Docusate Sodium (Colace Capsule) 100 mg BIDPRN PRN PO FOR CONSTIPATION 02/17/25 22:15 Acetaminophen (Tylenol Tablet) 650 mg Q6HP PRN PO PAIN SCALE 1-3 OR TEMP>100.4 02/17/25 22:15 Atorvastatin Calcium (Lipitor) 10 mg HS PO 02/18/25 22:00 Aspirin (Ecotrin Enteric Coated Tablet) 81 mg DAILY PO 02/18/25 10:00 02/18/25 10:40 Nitroglycerin (Ntrostat Sublingual) 0.4 mg Q5MINP PRN SL FOR CHEST PAIN 02/17/25 23:30 Morphine Sulfate 2 mg Q30M PRN IV FOR CHEST PAIN 02/17/25 23:30 Vancomycin HCl 0 ml @ 0 mls/hr UD IV 02/18/25 01:45 Family History: FH: cancer G8 MOTHER Family History Noncontributory Social History She denies smoking alcohol or drug abuse Review of Systems HEENT: Oral mucosa dry Neck no JVD Cardiovascular: Denies for chest pain denies orthopnea or PND Respiratory: Positive chronic shortness of breath th Gastrointestinal: Denies for nausea vomiting Musculoskeletal: Denies myalgias Neurological: Denies focal weakness positive for generalized weakness Dermatological: Denies any rash The rest of the review of systems were reviewed pertinent positives and pertinent negatives are as per HPI up to 12 points review of systems H&P Exam Vital Signs/I&O Vital Sign Date Time Temp Pulse Resp B/P (MAP) Pulse Ox O2 Delivery O2 Flow Rate FiO2 02/18/25 13:00 98.0 65 16 101/41 (61) 99 98.0 02/18/25 08:00 Oxymizer 2 N/A Intake and Output 02/17/25 02/18/25 19:00 07:00 Intake Total 100 ml Balance 100 ml Intake Oral 100 ml # Voids 1 # Bowel Movements 1 Physical Exam HEENT: No evidence of JVD, no oral ulcers. Nasal cannula Pulmonary: Lungs are clear on auscultation bilaterally Cardiovascular S1-S2, no S3 or S4 Abdomen: Bowel sounds positive, soft no rebound tenderness Skin: No rash Neurological: Alert, oriented, no focal weakness Access positive bruit and thrill Labs/Diagnostic Data Labs/Diagnostic Data Laboratory Tests Test 02/18/25 10:59 02/18/25 05:49 02/18/25 05:22 02/17/25 20:50 Range/Units POC Glucose 78 75 70-106 mg/dl White Blood Count 8.2 4.4-10.8 10^3/uL Red Blood Count 2.82 L 4.0-5.20 10^6/uL Hemoglobin 8.0 L 12.2-16.2 g/dL Hematocrit 26.2 L 36.0-46.0 % Mean Corpuscular Volume 92.9 80.0-100.0 fL Mean Corpuscular Hemoglobin 28.4 28.0-32.0 pg Mean Corpuscular Hemoglobin Concent 30.6 L 32.0-36.0 g/dL Red Cell Distribution Width 18.5 H 11.8-14.3 % Platelet Count 258 140-450 10^3/uL Mean Platelet Volume 7.9 6.9-10.8 fL Neutrophils (%) (Auto) 74.0 37.0-80.0 % Lymphocytes (%) (Auto) 12.6 10.0-50.0 % Monocytes (%) (Auto) 11.5 0.0-12.0 % Eosinophils (%) (Auto) 1.3 0.0-7.0 % Basophils (%) (Auto) 0.6 0.0-2.0 % Neutrophils # (Auto) 6.1 1.6-8.6 10 ^3/uL Lymphocytes # (Auto) 1.0 0.4-5.4 10 ^3/uL Monocytes # (Auto) 0.9 0-1.3 10 ^3/uL Eosinophils # (Auto) 0.1 0-0.8 10 ^3/uL Basophils # (Auto) 0 0-0.2 10 ^3/uL Nucleated Red Blood Cells 0.2 % Sodium Level 144 136-145 mmol/L Potassium Level 3.4 L 3.5-5.1 mmol/L Chloride Level 103 98-107 mmol/L Carbon Dioxide Level 29 20-31 mmol/L Anion Gap 12 5-15 Blood Urea Nitrogen 20 9-23 mg/dL Creatinine 4.67 H 0.550-1.02 mg/dL Glomerular Filtration Rate Calc 9 >90 mL/min BUN/Creatinine Ratio 4.3 L 10.0-20.0 Serum Glucose 80 74-106 mg/dL Calcium Level 9.1 8.7-10.4 mg/dL Total Bilirubin 0.4 0.2-1.0 mg/dL Aspartate Amino Transferase (AST) 33 13-40 U/L Alanine Aminotransferase (ALT) < 9 7-40 U/L Alkaline Phosphatase 456 H 46-116 U/L Total Protein 6.4 5.7-8.2 g/dL Albumin 3.7 3.2-4.8 g/dL Hepatitis B Surface Antigen Negative Negative Troponin I High Sensitivity 46 *H </=34 ng/L Test 02/17/25 18:28 02/17/25 17:25 Range/Units Troponin I High Sensitivity 51 *H 60 *H </=34 ng/L White Blood Count 9.6 4.4-10.8 10^3/uL Red Blood Count 2.85 L 4.0-5.20 10^6/uL Hemoglobin 8.0 L 12.2-16.2 g/dL Hematocrit 26.2 L 36.0-46.0 % Mean Corpuscular Volume 91.6 80.0-100.0 fL Mean Corpuscular Hemoglobin 28.1 28.0-32.0 pg Mean Corpuscular Hemoglobin Concent 30.6 L 32.0-36.0 g/dL Red Cell Distribution Width 18.8 H 11.8-14.3 % Platelet Count 269 140-450 10^3/uL Mean Platelet Volume 7.9 6.9-10.8 fL Neutrophils (%) (Auto) 76.3 37.0-80.0 % Lymphocytes (%) (Auto) 12.4 10.0-50.0 % Monocytes (%) (Auto) 9.8 0.0-12.0 % Eosinophils (%) (Auto) 1.1 0.0-7.0 % Basophils (%) (Auto) 0.4 0.0-2.0 % Neutrophils # (Auto) 7.3 1.6-8.6 10 ^3/uL Lymphocytes # (Auto) 1.2 0.4-5.4 10 ^3/uL Monocytes # (Auto) 0.9 0-1.3 10 ^3/uL Eosinophils # (Auto) 0.1 0-0.8 10 ^3/uL Basophils # (Auto) 0 0-0.2 10 ^3/uL Nucleated Red Blood Cells 0.2 % Sodium Level 142 136-145 mmol/L Potassium Level 2.7 L 3.5-5.1 mmol/L Chloride Level 98 98-107 mmol/L Carbon Dioxide Level 31 20-31 mmol/L Anion Gap 13 5-15 Blood Urea Nitrogen 18 9-23 mg/dL Creatinine 4.01 H 0.550-1.02 mg/dL Glomerular Filtration Rate Calc 11 >90 mL/min BUN/Creatinine Ratio 4.5 L 10.0-20.0 Serum Glucose 107 H 74-106 mg/dL Calcium Level 8.6 L 8.7-10.4 mg/dL B-Type Natriuretic Peptide 247.53 0-100 pg/mL Chest x-ray with mild pulmonary edema Assessment Assessment: 1. End-stage renal disease on hemodialysis Friday. 2. Transient hypotension 3. Troponin elevation 4. Anemia of end-stage renal disease least 5. Chronic hypoxic respiratory failure 6. Hypertension 7. Diabetes type 2 8. Generalized weakness 9. Hypokalemia Plan: HD today, UF as much as possible, four K bath. Potassium was replaced Oxygen supplementation four pulse ox more than 90% Check iron studies, hematology consult Dashawn for goal hemoglobin 10 to 11 grams/deciliter Fluid restriction less than 1 L per day Cardiology consult Thank you very much for allowing us to participate in the care of this patient Plan discussed with: Patient MANN HOLLIS MD February 18, 2025 15:15
--- NOTE | 2025-02-18 17:33 | DVHPN2 ---
Subjective 79 year old female admitted for SOB and weakness Changes from previous H/P or p: Changes Eyes: No Pain, No Vision change, No Conjunctivae inflammation, No Eyelid inflammation, No Other, No Redness ENT: No Ear pain, No Ear discharge, No Nose pain, No Nose discharge, No Nose congestion, No Mouth pain, No Mouth swelling, No Throat pain, No Throat swelling, No Other Cardiovascular: No Chest Pain, No Palpitations, No Orthopnea, No Paroxysmal Noc. Dyspnea, No Edema, No Lt Headedness, No Other Respiratory: No Cough, No Dry; Shortness of breath; No SOB with excertion, No Wheezing, No Hemoptysis, No Pleuritic Pain, No Sputum, No Other Gastrointestinal: No Nausea, No Vomiting, No Abdominal Pain, No Diarrhea, No Constipation, No Melena, No Hematochezia, No Other Genitourinary: No Dysuria, No Frequency, No Incontinence, No Hematuria, No Retention, No Other Musculoskeletal: No other, No neck pain, No shoulder pain, No arm pain, No back pain, No hand pain, No leg pain, No foot pain Skin: No Rash, No Lesions, No Jaundice, No Bruising, No Other Objective Vitals Vital Signs Date Time Temp Pulse Resp B/P (MAP) Pulse Ox O2 Delivery O2 Flow Rate FiO2 02/18/25 13:00 98.0 65 16 101/41 (61) 99 98.0 02/18/25 08:00 Oxymizer 2 N/A Intake/Output Intake and Output 02/18/25 07:00 Intake Total 100 ml Balance 100 ml Intake Oral 100 ml # Voids 1 # Bowel Movements 1 General Appearance: Alert, Oriented X3 Lungs: Clear to auscultation, Normal air movement Cardiovascular: Regular rate, Normal S1 Abdomen: Normal bowel sounds, Soft Extremities: No edema Medications Current Medications Medications Dose Ordered Sig/Samia Route Start Time Stop Time Status Last Admin Dose Admin Midodrine 10 mg TID@0600,1200,1800 PO 02/18/25 06:00 02/18/25 12:05 10 MG Multivit/Ca Carb/ B Cmplx/FA/Prenat 1 tab DAILY PO 02/18/25 10:00 02/18/25 10:39 1 TAB Sevelamer HCl 800 mg TIDWM PO 02/18/25 08:00 02/18/25 12:05 800 MG Calcium Acetate 667 mg TIDWMEALS PO 02/18/25 08:00 02/18/25 12:05 667 MG Diagnostic Test (Pha) 1 strip ACHS 02/18/25 07:00 02/18/25 16:42 1 STRIP Insulin Human Regular ACHS SC 02/18/25 07:00 Dextrose 50 ml UD PRN IV 02/17/25 22:15 Sodium Chloride 10 ml Q8HR IV 02/18/25 06:00 02/18/25 12:05 10 ML Acetaminophen/ Hydrocodone Bitart 1 tab Q4HP PRN PO 02/17/25 22:15 Ondansetron HCl 4 mg Q4HP PRN IV 02/17/25 22:15 Docusate Sodium 100 mg BIDPRN PRN PO 02/17/25 22:15 Acetaminophen 650 mg Q6HP PRN PO 02/17/25 22:15 Atorvastatin Calcium 10 mg HS PO 02/18/25 22:00 Aspirin 81 mg DAILY PO 02/18/25 10:00 02/18/25 10:40 81 MG Nitroglycerin 0.4 mg Q5MINP PRN SL 02/17/25 23:30 Morphine Sulfate 2 mg Q30M PRN IV 02/17/25 23:30 Vancomycin HCl 0 ml @ 0 mls/hr UD IV 02/18/25 01:45 Laboratory Results Laboratory Tests 02/18/25 05:49 Chemistry Test 02/17/25 17:25 02/18/25 05:49 Calcium Level 8.6 mg/dL (8.7-10.4) L 9.1 mg/dL (8.7-10.4) Albumin 3.7 g/dL (3.2-4.8) Total Protein 6.4 g/dL (5.7-8.2) Cardiac Markers Test 02/17/25 17:25 B-Type Natriuretic Peptide 247.53 pg/mL (0-100) LFT Test 02/18/25 05:49 Alanine Aminotransferase (ALT) < 9 U/L (7-40) Alkaline Phosphatase 456 U/L (46-116) H Aspartate Amino Transferase (AST) 33 U/L (13-40) Total Bilirubin 0.4 mg/dL (0.2-1.0) Assessment/Plan Assessment/Plan Acute hypoxic respiratory failure Pulmonary edema Fluid overload End-stage renal disease on hemodialysis Friday. Transient hypotension Troponin elevation Anemia of CKD Chronic hypoxic respiratory failure Hypertension Diabetes type 2 Generalized weakness Hypokalemia PLAN: Consult nephrology for HD Fluid restriction Monitor closely Hypotension: Midodrine Elevated troponin: Cardiology consult Pulmonary edema: O2 prn, HD Monitor kidney function Full code Not stable for transfer Advanced directives discussed x 15 minutes Plan discussed with: Patient My Orders Orders - SOPHIA ARREOLA MD Procedure Category Date Status Time *[facility] -[facility] CONS 02/18/25 Transmitted Lindsay 10:26 Date of Service: February 18, 2025 Billing Provider: SOPHIA ARREOLA MD Common Visit Codes: [id number] INP/OBS CARE(HIGH) Secondary Visit Codes: [id number] CARE PLAN 30 MINUTES SOPHIA ARREOLA MD February 18, 2025 17:33
[2025-02-18] MEDS: ATORVASTATIN 20 MG TAB PO SCH (23:30)
[2025-02-19] VITALS (8 sets, daily range): BP systolic 99–104; BP diastolic 33–56; PULSE 62–72; RESP 16–18; TEMP 97–98.2; O2SAT 95–100
[2025-02-19 07:48] LABS: Anion Gap 15 (5-15); Carbon Dioxide 27 mmol/L (20-31); Chloride 103 mmol/L (98-107); Sodium 145 mmol/L (136-145)
[2025-02-19 07:49] LABS: Calcium 9.3 mg/dL (8.7-10.4)
[2025-02-19 07:50] LABS: Potassium 3.4 mmol/L (3.5-5.1)
[2025-02-19 07:54] LABS: BUN/Creatinine Ratio 4.8 (10.0-20.0)
[2025-02-19 07:56] LABS: % Iron Saturation 47.1 % (15-50)
[2025-02-19 08:06] LABS: Blood Urea Nitrogen 29 mg/dL (9-23); Glucose 110 mg/dL (74-106); Phosphorus 2.3 mg/dL (2.4-5.1)
[2025-02-19] MEDS: EPOETIN ALFA-EPBX 10,000 UNIT/1ML VIAL SC ONE (09:35)
--- NOTE | 2025-02-19 12:13 | DVHPN2 ---
Subjective No new complaints Status post dialysis this morning Changes from previous H/P or p: Changes Eyes: No Pain, No Vision change, No Conjunctivae inflammation, No Eyelid inflammation, No Other, No Redness ENT: No Ear pain, No Ear discharge, No Nose pain, No Nose discharge, No Nose congestion, No Mouth pain, No Mouth swelling, No Throat pain, No Throat swelling, No Other Cardiovascular: No Chest Pain, No Palpitations, No Orthopnea, No Paroxysmal Noc. Dyspnea, No Edema, No Lt Headedness, No Other Respiratory: No Cough, No Dry; Shortness of breath; No SOB with excertion, No Wheezing, No Hemoptysis, No Pleuritic Pain, No Sputum, No Other Gastrointestinal: No Nausea, No Vomiting, No Abdominal Pain, No Diarrhea, No Constipation, No Melena, No Hematochezia, No Other Genitourinary: No Dysuria, No Frequency, No Incontinence, No Hematuria, No Retention, No Other Musculoskeletal: No other, No neck pain, No shoulder pain, No arm pain, No back pain, No hand pain, No leg pain, No foot pain Skin: No Rash, No Lesions, No Jaundice, No Bruising, No Other Objective Vitals Vital Signs Date Time Temp Pulse Resp B/P (MAP) Pulse Ox O2 Delivery O2 Flow Rate FiO2 02/19/25 09:00 97.0 62 17 102/45 (64) 95 97.0 02/18/25 20:00 Oxymizer 2 N/A Intake/Output Intake and Output 02/19/25 07:00 Intake Total 880 ml Output Total 400 ml Balance 480 ml Intake Oral 880 ml Output Urine Total 400 ml # Voids 1 # Bowel Movements 3 General Appearance: Alert, Oriented X3 Lungs: Clear to auscultation, Normal air movement Cardiovascular: Regular rate, Normal S1 Abdomen: Normal bowel sounds, Soft Extremities: No edema Medications Current Medications Medications Dose Ordered Sig/Samia Route Start Time Stop Time Status Last Admin Dose Admin Midodrine 10 mg TID@0600,1200,1800 PO 02/18/25 06:00 02/19/25 06:05 10 MG Multivit/Ca Carb/ B Cmplx/FA/Prenat 1 tab DAILY PO 02/18/25 10:00 02/19/25 09:35 1 TAB Sevelamer HCl 800 mg TIDWM PO 02/18/25 08:00 02/19/25 09:35 800 MG Calcium Acetate 667 mg TIDWMEALS PO 02/18/25 08:00 02/19/25 09:35 667 MG Diagnostic Test (Pha) 1 strip ACHS 02/18/25 07:00 02/19/25 07:00 1 STRIP Insulin Human Regular ACHS SC 02/18/25 07:00 Dextrose 50 ml UD PRN IV 02/17/25 22:15 Sodium Chloride 10 ml Q8HR IV 02/18/25 06:00 02/19/25 06:00 10 ML Acetaminophen/ Hydrocodone Bitart 1 tab Q4HP PRN PO 02/17/25 22:15 Ondansetron HCl 4 mg Q4HP PRN IV 02/17/25 22:15 Docusate Sodium 100 mg BIDPRN PRN PO 02/17/25 22:15 Acetaminophen 650 mg Q6HP PRN PO 02/17/25 22:15 Atorvastatin Calcium 10 mg HS PO 02/18/25 22:00 02/18/25 23:30 10 MG Aspirin 81 mg DAILY PO 02/18/25 10:00 02/19/25 09:36 81 MG Nitroglycerin 0.4 mg Q5MINP PRN SL 02/17/25 23:30 Morphine Sulfate 2 mg Q30M PRN IV 02/17/25 23:30 Laboratory Results Laboratory Tests 02/18/25 05:49 02/19/25 06:57 Chemistry Test 02/19/25 06:57 Calcium Level 9.3 mg/dL (8.7-10.4) Phosphorus Level 2.3 mg/dL (2.4-5.1) L Assessment/Plan Assessment/Plan Acute hypoxic respiratory failure Pulmonary edema Fluid overload End-stage renal disease on hemodialysis Friday. 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 Recent GI bleed according to her sister PLAN: Consult nephrology for HD Fluid restriction Monitor closely Hypotension: Midodrine Elevated troponin: Cardiology consult Pulmonary edema: O2 prn, HD Monitor kidney function Full code Not stable for transfer Advanced directives discussed x 15 minutes 02/19/2025: Status post Nephrology this morning CT scan of the abdomen and pelvis on admission showed metastatic disease of the lungs and liver and left adrenal gland, the patient apparently knew about it before and did not want anymore workup Recent history of GI bleed according to her sister, recent admission to another hospital at [place], she was supposed to get endoscopy CEA is high at 500 Hematology oncology consult GI consult Protonix IV Discussed with the sister at the bedside Patient and family would like to be transferred to [place] to finish her workup there The patient is stable for transfer Plan discussed with: Patient, Other My Orders Orders - SOPHIA ARREOLA MD Procedure Category Date Status Time * Cardiology Consult CONS 02/18/25 Transmitted 17:28 Date of Service: February 19, 2025 Billing Provider: SOPHIA ARREOLA MD Common Visit Codes: [id number] INP/OBS CARE(HIGH) SOPHIA ARREOLA MD February 19, 2025 12:13
[2025-02-19] MEDS: PANTOPRAZOLE 40 MG/10 ML VIAL INJ IV ONE (12:48)
[2025-02-19] MEDS: LORazepam 0.5 MG TAB PO ONE (12:49)
--- NOTE | 2025-02-19 14:46 | DVH ---
Procedure: CT CHEST WITHOUT CONTRAST Reason for study/Clinical History: lung metastasis Comparison Study: None Exam Date: 02/19/2025 11:27 AM TECHNIQUE: Multidetector CT of the chest was performed from the lung apices to the upper abdomen with out the use of intravenous contract. Axial, coronal and sagittal multiplanar reformats were performed . Radiation Dose Information: CT Dose: CTDI volume is 24.69 mGy. Dose-length product is 880.06 mGy*cm The dose indicators for CT are the volume Computed Tomography (CT) Dose Index (CTDIvol) and the Dose Length Product (DLP), and are measured in units of mGy and mGy-cm, respectively. These indicators are not patient dose, but values generated from the CT scanner acquisition factors. The report includes radiation exposure data for exposures received during this examination. FINDINGS: Lower neck: Normal thyroid. Lungs: Multiple bilateral pulmonary nodules greater 20 nodules on the right. Greater 10 nodules on th e left. Findings consistent with pulmonary metastasis Heart/Vascular Structures: Normal heart size. No pericardial effusion. Lymph Nodes: No adenopathy Pleura: No pleural effusion or significant pneumothorax. 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 Soft tissues: Normal. Upper abdomen: Multiple intrahepatic masses consistent with hepatic metastasis. IMPRESSION: 1. Multiple bilateral pulmonary nodules consistent with pulmonary metastasis. Greater than 20 nodules on the right and greater than 10 nodules on the left. The largest is in the left base measuring 2.2 cm. 2. 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 3. Multiple masses in the liver consistent with hepatic metastasis. HS:Y Radiation optimization: All CT scans at this facility use at least one of these dose optimization jaswinder hniques: automated exposure control mA and/or kV adjustment per patient size (includes targeted exam s where dose is matched to clinical indication) or iterative reconstruction.
--- NOTE | 2025-02-19 15:18 | DVHPN2 ---
Progress Note - Dictate Date Seen: February 19, 2025 Medical Necessity Reason Pt with a Central, PICC or Fol: No Subjective Patient's breathing is better after dialysis today. vital signs Vital Sign Date Time Temp Pulse Resp B/P (MAP) Pulse Ox O2 Delivery O2 Flow Rate FiO2 02/19/25 09:00 97.0 62 17 102/45 (64) 95 97.0 02/18/25 20:00 Oxymizer 2 N/A Total Intake and Output 02/18/25 02/18/25 02/19/25 15:00 23:00 07:00 Intake Total 480 ml 400 ml Output Total 400 ml Balance 80 ml 400 ml medications Current Medications Medications Dose Ordered Sig/Samia Route Start Time Stop Time Status Last Admin Dose Admin Midodrine 10 mg TID@0600,1200,1800 PO 02/18/25 06:00 02/19/25 12:48 10 MG Multivit/Ca Carb/ B Cmplx/FA/Prenat 1 tab DAILY PO 02/18/25 10:00 02/19/25 09:35 1 TAB Sevelamer HCl 800 mg TIDWM PO 02/18/25 08:00 02/19/25 12:48 800 MG Calcium Acetate 667 mg TIDWMEALS PO 02/18/25 08:00 02/19/25 12:48 667 MG Diagnostic Test (Pha) 1 strip ACHS 02/18/25 07:00 02/19/25 12:38 1 STRIP Insulin Human Regular ACHS SC 02/18/25 07:00 02/19/25 12:41 2 UNITS Dextrose 50 ml UD PRN IV 02/17/25 22:15 Sodium Chloride 10 ml Q8HR IV 02/18/25 06:00 02/19/25 12:49 10 ML Acetaminophen/ Hydrocodone Bitart 1 tab Q4HP PRN PO 02/17/25 22:15 Ondansetron HCl 4 mg Q4HP PRN IV 02/17/25 22:15 Docusate Sodium 100 mg BIDPRN PRN PO 02/17/25 22:15 Acetaminophen 650 mg Q6HP PRN PO 02/17/25 22:15 Atorvastatin Calcium 10 mg HS PO 02/18/25 22:00 02/18/25 23:30 10 MG Aspirin 81 mg DAILY PO 02/18/25 10:00 02/19/25 09:36 81 MG Nitroglycerin 0.4 mg Q5MINP PRN SL 02/17/25 23:30 Morphine Sulfate 2 mg Q30M PRN IV 02/17/25 23:30 Pantoprazole Sodium 40 mg DAILY IV 02/20/25 10:00 objective HEENT: No evidence of JVD, no oral ulcers. Pulmonary: Diminished on auscultation bilaterally Cardiovascular S1-S2, no S3 or S4 Abdomen: Bowel sounds positive, soft no rebound tenderness Skin: No rash Neurological: Alert, oriented, no focal weakness laboratory and microbiology Laboratory Tests 02/19/25 06:57 02/18/25 05:49 Test 02/19/25 06:57 Range/Units Serum Glucose 110 H 74-106 mg/dL Assessment/Plan Assessment: 1. End-stage renal disease on hemodialysis Friday. 2. Transient hypotension 3. Troponin elevation 4. Anemia of end-stage renal disease least 5. Chronic hypoxic respiratory failure 6. Hypertension 7. Diabetes type 2 8. Generalized weakness 9. Hypokalemia 10. 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 Plan: Dialysis was done today due to short staffing yesterday. Next dialysis Friday Oxygen supplementation four pulse ox more than 90% Oncology consult Check iron studies, hematology consult Hold off on FAUSTINO in view of underlying malignancy Fluid restriction less than 1 L per day Cardiology consult Plan discussed with: Patient MANN HOLLIS MD February 19, 2025 15:18
--- NOTE | 2025-02-19 15:38 | DVHINCON2 ---
Date of service: February 19, [address] Woodruff Reason for Consultation Anemia and metastatic disease History of Present Illness The patient is a 79-year-old female with past medical history of CHF, DM, hypertension, and end-stage renal disease on hemodialysis presented to [facility] ED with complaint of shortness of breaths. Patient reports symptoms progressively get worse with generalized weakness getting worse that prompted this visit. Patient was dialyzed yesterday and took off approximately 1.5 L, unable to get up and walk around at this point, patient's blood pressure was 86/44. The patient was given 300 cc of normal saline and the pressure came up to 105/41. Past Medical History Past Medical History CHF, DM, ESRD, HTN Past Surgical History Past Surgical History Left knee surgery, Dialysis shunt Family History: FH: cancer G8 MOTHER Allergies: Coded Allergies: Penicillins (Verified Allergy, Unknown, HIVES, 06/28/24) Home Meds Reported Medications Polyethylene Glycol 3350 (Miralax) 17 Gm Pow, 17 GM PO, POW 08/04/24 Midodrine Hcl (Midodrine Hcl) 5 Mg Tab, 5 MG PO, TAB 08/04/24 Cinacalcet HCl (Cinacalcet Hydrochloride) 90 Mg Tab, 90 MG PO, TAB 08/04/24 Sevelamer Hydrochloride (Sevelamer Hydrochloride) 800 Mg Tab, 800 MG PO, TAB 08/04/24 Cholecalciferol (VITAMIN D3) 2,000 Unit Tab, 1 TAB PO DAILY, #30 TAB 5 Refills 08/04/24 Pravastatin Sodium (PRAVACHOL TABLET) 20 Mg Tb, 1 TAB PO QPM, #90 TAB 1 Refill 06/29/24 Gabapentin (Gabapentin) 100 Mg Cap, 100 MG PO BID for 30 Days, MG 06/29/24 Current Medications Current Medications Medications (Trade) Dose Ordered Sig/Samia Route PRN Reason Start Time Stop Time Status Last Admin Atorvastatin Calcium (Lipitor) 10 mg HS PO 02/18/25 22:00 02/18/25 23:30 Pantoprazole Sodium (Protonix) 40 mg DAILY IV 02/20/25 10:00 Vital Signs Vital Signs Date Time Temp Pulse Resp B/P (MAP) Pulse Ox O2 Delivery O2 Flow Rate FiO2 02/19/25 09:00 97.0 62 17 102/45 (64) 95 97.0 02/18/25 20:00 Oxymizer 2 N/A Physical Exam HEENT: No evidence of JVD, no oral ulcers. Nasal cannula Pulmonary: Lungs are clear on auscultation bilaterally Cardiovascular S1-S2, no S3 or S4 Abdomen: Bowel sounds positive, soft no rebound tenderness Skin: No rash Neurological: Alert, oriented, no focal weakness Access positive bruit and thrill Labs/Diagnostic Data Labs Test 02/19/25 12:10 02/19/25 06:57 02/18/25 19:47 02/18/25 05:49 Range/Units POC Glucose 144 H 70-106 mg/dl Sodium Level 145 136-145 mmol/L Potassium Level 3.4 L 3.5-5.1 mmol/L Chloride Level 103 98-107 mmol/L Carbon Dioxide Level 27 20-31 mmol/L Anion Gap 15 5-15 Blood Urea Nitrogen 29 H 9-23 mg/dL Creatinine 6.03 H 0.550-1.02 mg/dL Glomerular Filtration Rate Calc 7 >90 mL/min BUN/Creatinine Ratio 4.8 L 10.0-20.0 Serum Glucose 110 H 74-106 mg/dL Calcium Level 9.3 8.7-10.4 mg/dL Phosphorus Level 2.3 L 2.4-5.1 mg/dL Iron Level 72 50-170 ug/dL Total Iron Binding Capacity 153 L 250-425 ug/dL Percent Iron Saturation 47.1 15-50 % Ferritin > 3300.0 H 10-291 ng/mL Carcinoembryonic Antigen 500.00 <=5.0 ng/mL White Blood Count 8.2 4.4-10.8 10^3/uL Red Blood Count 2.82 L 4.0-5.20 10^6/uL Hemoglobin 8.0 L 12.2-16.2 g/dL Hematocrit 26.2 L 36.0-46.0 % Mean Corpuscular Volume 92.9 80.0-100.0 fL Mean Corpuscular Hemoglobin 28.4 28.0-32.0 pg Mean Corpuscular Hemoglobin Concent 30.6 L 32.0-36.0 g/dL Red Cell Distribution Width 18.5 H 11.8-14.3 % Platelet Count 258 140-450 10^3/uL Mean Platelet Volume 7.9 6.9-10.8 fL Neutrophils (%) (Auto) 74.0 37.0-80.0 % Lymphocytes (%) (Auto) 12.6 10.0-50.0 % Monocytes (%) (Auto) 11.5 0.0-12.0 % Eosinophils (%) (Auto) 1.3 0.0-7.0 % Basophils (%) (Auto) 0.6 0.0-2.0 % Neutrophils # (Auto) 6.1 1.6-8.6 10 ^3/uL Lymphocytes # (Auto) 1.0 0.4-5.4 10 ^3/uL Monocytes # (Auto) 0.9 0-1.3 10 ^3/uL Eosinophils # (Auto) 0.1 0-0.8 10 ^3/uL Basophils # (Auto) 0 0-0.2 10 ^3/uL Nucleated Red Blood Cells 0.2 % Total Bilirubin 0.4 0.2-1.0 mg/dL Aspartate Amino Transferase (AST) 33 13-40 U/L Alanine Aminotransferase (ALT) < 9 7-40 U/L Alkaline Phosphatase 456 H 46-116 U/L Total Protein 6.4 5.7-8.2 g/dL Albumin 3.7 3.2-4.8 g/dL Hepatitis B Surface Antigen Negative Negative Test 02/17/25 20:50 02/17/25 17:25 Range/Units Troponin I High Sensitivity 46 *H </=34 ng/L B-Type Natriuretic Peptide 247.53 0-100 pg/mL CT SCAN ABD PELVIS IMPRESSION: 1. Metastatic disease involving the liver, lung bases, left adrenal gland, and left mid to lower abdominopelvic mesentery. There may be neoplastic mass versus scarring in the anterior pelvic wall midline. Additionally, there is diffuse irregular appearance of the bony structures which may be due to metastatic disease and/or metabolic disease. 2. Cardiomegaly and interstitial prominence in the lung bases suggestive of CHF. 3. Bilateral renal cortical atrophy, simple and complex cysts, and nonobstructing nephrolithiasis. 4. Loculated fluid in the pelvis and low volume free fluid in the upper abdomen. 5. Sigmoid colon diverticulosis without definite evidence of acute diverticulitis. CT CHEST IMPRESSION: 1. Multiple bilateral pulmonary nodules consistent with pulmonary metastasis. Greater than 20 nodules on the right and greater than 10 nodules on the left. The largest is in the left base measuring 2.2 cm. 2. 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 3. Multiple masses in the liver consistent with hepatic metastasis. HS:Y Problems(with codes): (1) Metastatic disease (2) Abnormal finding on GI tract imaging (3) Anemia (4) End stage renal disease on dialysis (5) Generalized weakness Plan/Recommendation PLAN Continue supportive care Patient was dialyzed today H&H is stable at this time Discussion with family regarding any further workup or management they would like to pursue like biopsy or oncology consult Otherwise consider hospice Patient and family requesting transfer to [place] and social security assessor will be involved Plan discussed with: Other (Nurse) ED OSCAR MD February 19, 2025 15:38
[2025-02-20] VITALS (7 sets, daily range): BP systolic 95–113; BP diastolic 31–71; PULSE 63–69; RESP 18–20; TEMP 97.7–98.2; O2SAT 100
[2025-02-20 05:53] LABS: Hemoglobin 8.3 g/dL (12.2-16.2)
[2025-02-20 05:54] LABS: Chloride 102 mmol/L (98-107); Sodium 143 mmol/L (136-145)
[2025-02-20 05:55] LABS: Anion Gap 11 (5-15); Calcium 8.9 mg/dL (8.7-10.4); Carbon Dioxide 30 mmol/L (20-31)
[2025-02-20 05:56] LABS: Hematocrit 26.8 % (36.0-46.0); Mean Corpuscular Hemoglobin 28.7 pg (28.0-32.0); Mean Corpuscular Volume 92.4 fL (80.0-100.0); Platelet Count (auto) 251 10^3/uL (140-450); Red Cell Distribution Width 18.7 % (11.8-14.3)
[2025-02-20 05:57] LABS: Potassium 3.3 mmol/L (3.5-5.1)
[2025-02-20 06:00] LABS: BUN/Creatinine Ratio 4.1 (10.0-20.0); Blood Urea Nitrogen 20 mg/dL (9-23); Glucose 86 mg/dL (74-106)
[2025-02-20 06:01] LABS: Basophils % (manual) 0 (0.0-2.0); Blast Cells 0; Myelocytes % 0; Promyelocytes % 0; Reactive Lymphocytes 0
[2025-02-20 07:33] LABS: Anisocytosis Slight; Band Neutrophils % (manual) 5; Eosinophils % (manual) 2 (0-7); Lymphocytes % (manual) 4 (10.0-50.0); Metamyelocytes % 1; Monocytes % (manual) 3 (0-12); Platelet Estimate Adequate; Polychromasia Slight
[2025-02-20 08:06] LABS: AFP Serum Tumor Marker 4.6 ng/mL (0.0-9.2)
[2025-02-20] MEDS: PANTOPRAZOLE 40 MG/10 ML VIAL INJ IV SCH (09:27)
--- NOTE | 2025-02-20 12:09 | DVHINCON2 ---
Date Seen: February 20, 2025 Referring Physician Ranjan Reason for Consultation Positive Troponins History of Present Illness 79-year-old female with PMH for CHF, lung mass, pulmonary hypertension, diabetes, HTN, ESRD on HD, SDH, hypotension on midodrine presents to the hospital with shortness of breath. Patient states symptoms have been progressively getting worse, also worsens with exertion. Apparently patient was dialyzed the day prior to presentation with-1 point L removed, upon evaluation in the ER patient noted to be hypotensive with BP 86/44 and was given IV fluid bolus for which improved. Patient found to have mildly elevated troponins trending 60, 51, 46. Denies any chest pain, palpitations. EKG reviewed and shows sinus rhythm with first-degree AV block at 77 beats per minute, PACs, n onspecific ST and T-wave abnormality unchanged from previous EKGs. Past Medical History As stated above Past Surgical History As stated above Family History: FH: cancer G8 MOTHER Social History Denies alcohol, tobacco, or illicit drug use. Allergies: Coded Allergies: Penicillins (Verified Allergy, Unknown, HIVES, 06/28/24) Home Meds Reported Medications Polyethylene Glycol 3350 (Miralax) 17 Gm Pow, 17 GM PO, POW 08/04/24 Midodrine Hcl (Midodrine Hcl) 5 Mg Tab, 5 MG PO, TAB 08/04/24 Cinacalcet HCl (Cinacalcet Hydrochloride) 90 Mg Tab, 90 MG PO, TAB 08/04/24 Sevelamer Hydrochloride (Sevelamer Hydrochloride) 800 Mg Tab, 800 MG PO, TAB 08/04/24 Cholecalciferol (VITAMIN D3) 2,000 Unit Tab, 1 TAB PO DAILY, #30 TAB 5 Refills 08/04/24 Pravastatin Sodium (PRAVACHOL TABLET) 20 Mg Tb, 1 TAB PO QPM, #90 TAB 1 Refill 06/29/24 Gabapentin (Gabapentin) 100 Mg Cap, 100 MG PO BID for 30 Days, MG 06/29/24 Current Medications Current Medications Medications (Trade) Dose Ordered Sig/Samia Route PRN Reason Start Time Stop Time Status Last Admin Pantoprazole Sodium (Protonix) 40 mg DAILY IV 02/20/25 10:00 02/20/25 09:27 Review of Systems Constitutional: No: Fever, Chills, Sweats, Weakness, Malaise, Other Eyes: No: Pain, Vision change, Conjunctivae inflammation, Eyelid inflammation, Other, Redness ENT: No: Ear pain, Ear discharge, Nose pain, Nose discharge, Nose congestion, Mouth pain, Mouth swelling, Throat pain, Throat swelling, Other Respiratory: No: Cough, Dry, , SOB with exertion, Wheezing, Hemoptysis, Pleuritic Pain, Sputum, Wheezing, Other positive: Shortness of breath Cardiovascular: ; No: Chest Pain Palpitations, Orthopnea, Paroxysmal Noc. Dyspnea, Edema, Lt Headedness, Other Gastrointestinal: No: Nausea, Vomiting, Abdominal Pain, Diarrhea, Constipation, Melena, Hematochezia, Other Genitourinary: No Dysuria, No Frequency, No Incontinence, No Hematuria, No Retention, No Other Musculoskeletal: neck pain; No: other, shoulder pain, arm pain, back pain, hand pain, leg pain, foot pain Skin: No: Rash, Lesions, Jaundice, Bruising, Other Neurological: Other (Dizziness, headache.); No: Weakness, Numbness, Incoordination, Change in speech, Confusion, Seizures Vital Signs Vital Signs Date Time Temp Pulse Resp B/P (MAP) Pulse Ox O2 Delivery O2 Flow Rate FiO2 02/20/25 09:00 97.7 68 18 95/31 (52) 100 97.7 02/20/25 07:30 Oxymizer 2 N/A Physical Exam General appearance: Patient is well-developed, well-nourished, in mild acute distress. HEENT: Exam shows: Normocephalic, atraumatic, PERRLA, EOMI Neck: Supple, no bruits Chest: Equal chest excursion bilaterally. Breath sounds diminished Heart: Rhythm: Regular rate; no murmur or gallop Abdomen: Exam shows: Soft, nontender, nondistended Musculoskeletal: No clubbing, no cyanosis, no lower extremity edema Dermatology: Skin warm, moist. Neurological: Exam shows: Alert and oriented x4, normal speech Available prior records, labs, EKG, rhythm strips reviewed and interpreted Labs/Diagnostic Data Labs Test 02/20/25 09:42 02/20/25 05:12 02/19/25 06:57 02/18/25 19:47 Range/Units POC Glucose 109 H 70-106 mg/dl White Blood Count 10.0 4.4-10.8 10^3/uL Red Blood Count 2.90 L 4.0-5.20 10^6/uL Hemoglobin 8.3 L 12.2-16.2 g/dL Hematocrit 26.8 L 36.0-46.0 % Mean Corpuscular Volume 92.4 80.0-100.0 fL Mean Corpuscular Hemoglobin 28.7 28.0-32.0 pg Mean Corpuscular Hemoglobin Concent 31.0 L 32.0-36.0 g/dL Red Cell Distribution Width 18.7 H 11.8-14.3 % Platelet Count 251 140-450 10^3/uL Mean Platelet Volume 7.7 6.9-10.8 fL Neutrophils (%) (Auto) 37.0-80.0 % Lymphocytes (%) (Auto) 10.0-50.0 % Monocytes (%) (Auto) 0.0-12.0 % Basophils (%) (Auto) 0.0-2.0 % Neutrophils # (Auto) 1.6-8.6 10 ^3/uL Lymphocytes # (Auto) 0.4-5.4 10 ^3/uL Monocytes # (Auto) 0-1.3 10 ^3/uL Differential Total Cells Counted 100.0 100 Neutrophils % (Manual) 85 H 37.0-80.0 Band Neutrophils % (Manual) 5 Lymphocytes % (Manual) 4 L 10.0-50.0 Monocytes % (Manual) 3 0-12 Eosinophils % (Manual) 2 0-7 Basophils % (Manual) 0 0.0-2.0 Metamyelocytes % (manual) 1 Myelocytes % (Manual) 0 Promyelocytes % (Manual) 0 Blast Cells % (Manual) 0 Reactive Lymphocytes 0 Platelet Estimate Adequate Polychromasia Slight Anisocytosis (manual) Slight Sodium Level 143 136-145 mmol/L Potassium Level 3.3 L 3.5-5.1 mmol/L Chloride Level 102 98-107 mmol/L Carbon Dioxide Level 30 20-31 mmol/L Anion Gap 11 5-15 Blood Urea Nitrogen 20 9-23 mg/dL Creatinine 4.92 H 0.550-1.02 mg/dL Glomerular Filtration Rate Calc 9 >90 mL/min BUN/Creatinine Ratio 4.1 L 10.0-20.0 Serum Glucose 86 74-106 mg/dL Calcium Level 8.9 8.7-10.4 mg/dL Phosphorus Level 2.3 L 2.4-5.1 mg/dL Iron Level 72 50-170 ug/dL Total Iron Binding Capacity 153 L 250-425 ug/dL Percent Iron Saturation 47.1 15-50 % Ferritin > 3300.0 H 10-291 ng/mL Tumor Marker Alpha Fetoprotein 4.6 0.0-9.2 ng/mL Carcinoembryonic Antigen 500.00 <=5.0 ng/mL CA 125 Antigen 294.0 H 0.0-38.1 U/mL Test 02/18/25 05:49 02/17/25 20:50 02/17/25 17:25 Range/Units Eosinophils (%) (Auto) 1.3 0.0-7.0 % Eosinophils # (Auto) 0.1 0-0.8 10 ^3/uL Basophils # (Auto) 0 0-0.2 10 ^3/uL Nucleated Red Blood Cells 0.2 % Total Bilirubin 0.4 0.2-1.0 mg/dL Aspartate Amino Transferase (AST) 33 13-40 U/L Alanine Aminotransferase (ALT) < 9 7-40 U/L Alkaline Phosphatase 456 H 46-116 U/L Total Protein 6.4 5.7-8.2 g/dL Albumin 3.7 3.2-4.8 g/dL Hepatitis B Surface Antigen Negative Negative Troponin I High Sensitivity 46 *H </=34 ng/L B-Type Natriuretic Peptide 247.53 0-100 pg/mL Assessment * Mildly elevated troponin -stable. Check echo. On aspirin and statin. * Acute on chronic HFpEF - volume management with dialysis per Nephrology. Check echo. * Pulmonary hypertension - breathing stable likely in setting of lung mass. * Hypotension - on midodrine. * HLD - statin * HX lung mass, with possible metastatic disease - refused biopsy in the past. Continue management per primary team. * ESRD on HD - management per Nephrology Case Discussed with Dr Jameson. Patient not a good candidate for ischemic workup given HX lung mass with metastasis, previous SDH. Plan of care discussed with patient and also does not want any invasive procedures done at this time. Continue conservative medical management. Check echo. If no significant changes on echo, there is no further cardiac work-up indicated at this time. Thank you for allowing us to participate in this patient's care. Will sign off. Critical care, time spent: 40 minutes This medical document was created using an electronic medical record system with voice recognition software and computerized dictation system. Although this document has been carefully reviewed, there might still be some phonetic and typographical errors. Occasional wrong-word or ``sound-alike substitutions may have occurred due to the inherent limitations of voice recognition software. These areas are purely typographical due to imperfections of the software programs and do not reflect any compromise in the patient's medical care. Please read the chart carefully and recognize, using context, where these substitutions have occurred. Thank you for allowing me to participate in the management of this patient. The treatment plan was discussed with and agreed upon by patient/family including requesting consultants and ordering of imaging/procedures. Plan discussed with: Patient NYHA Physical activity limitations: Class4(Severe)discomfort Date of Service: February 20, 2025 Billing Provider: HODA LACEY Cardiology Common Codes: 12743-[id number] INP/OBS CARE (High), 30999-[id number] CARE 30-74 MIN HODA LACEY February 20, 2025 12:09
--- NOTE | 2025-02-20 12:16 | DVHPN2 ---
Subjective CT scan of the chest showed multiple bilateral pulmonary nodules consistent with pulmonary metastases She has a multiple osteoblastic bony metastases in the thoracic spine and multiple masses in the liver Changes from previous H/P or p: Changes Eyes: No Pain, No Vision change, No Conjunctivae inflammation, No Eyelid inflammation, No Other, No Redness ENT: No Ear pain, No Ear discharge, No Nose pain, No Nose discharge, No Nose congestion, No Mouth pain, No Mouth swelling, No Throat pain, No Throat swelling, No Other Cardiovascular: No Chest Pain, No Palpitations, No Orthopnea, No Paroxysmal Noc. Dyspnea, No Edema, No Lt Headedness, No Other Respiratory: No Cough, No Dry; Shortness of breath; No SOB with excertion, No Wheezing, No Hemoptysis, No Pleuritic Pain, No Sputum, No Other Gastrointestinal: No Nausea, No Vomiting, No Abdominal Pain, No Diarrhea, No Constipation, No Melena, No Hematochezia, No Other Genitourinary: No Dysuria, No Frequency, No Incontinence, No Hematuria, No Retention, No Other Musculoskeletal: No other, No neck pain, No shoulder pain, No arm pain, No back pain, No hand pain, No leg pain, No foot pain Skin: No Rash, No Lesions, No Jaundice, No Bruising, No Other Objective Vitals Vital Signs Date Time Temp Pulse Resp B/P (MAP) Pulse Ox O2 Delivery O2 Flow Rate FiO2 02/20/25 09:00 97.7 68 18 95/31 (52) 100 97.7 02/20/25 07:30 Oxymizer 2 N/A Intake/Output Intake and Output 02/20/25 07:00 Intake Total 940 ml Output Total 400 ml Balance 540 ml Intake Oral 940 ml Output Urine Total 400 ml # Voids 3 # Bowel Movements 3 General Appearance: Alert, Oriented X3 Lungs: Clear to auscultation, Normal air movement Cardiovascular: Regular rate, Normal S1 Abdomen: Normal bowel sounds, Soft Extremities: No edema Medications Current Medications Medications Dose Ordered Sig/Samia Route Start Time Stop Time Status Last Admin Dose Admin Midodrine 10 mg TID@0600,1200,1800 PO 02/18/25 06:00 02/20/25 05:44 10 MG Multivit/Ca Carb/ B Cmplx/FA/Prenat 1 tab DAILY PO 02/18/25 10:00 02/20/25 09:27 1 TAB Sevelamer HCl 800 mg TIDWM PO 02/18/25 08:00 02/20/25 09:26 800 MG Calcium Acetate 667 mg TIDWMEALS PO 02/18/25 08:00 02/20/25 09:26 667 MG Diagnostic Test (Pha) 1 strip ACHS 02/18/25 07:00 02/20/25 05:49 1 STRIP Insulin Human Regular ACHS SC 02/18/25 07:00 02/19/25 12:41 2 UNITS Dextrose 50 ml UD PRN IV 02/17/25 22:15 Sodium Chloride 10 ml Q8HR IV 02/18/25 06:00 02/20/25 05:39 10 ML Acetaminophen/ Hydrocodone Bitart 1 tab Q4HP PRN PO 02/17/25 22:15 Ondansetron HCl 4 mg Q4HP PRN IV 02/17/25 22:15 Docusate Sodium 100 mg BIDPRN PRN PO 02/17/25 22:15 Acetaminophen 650 mg Q6HP PRN PO 02/17/25 22:15 Atorvastatin Calcium 10 mg HS PO 02/18/25 22:00 02/19/25 21:17 10 MG Aspirin 81 mg DAILY PO 02/18/25 10:00 02/20/25 09:27 81 MG Nitroglycerin 0.4 mg Q5MINP PRN SL 02/17/25 23:30 Morphine Sulfate 2 mg Q30M PRN IV 02/17/25 23:30 Pantoprazole Sodium 40 mg DAILY IV 02/20/25 10:00 02/20/25 09:27 40 MG Laboratory Results Laboratory Tests 02/20/25 05:12 Chemistry Test 02/20/25 05:12 Calcium Level 8.9 mg/dL (8.7-10.4) Assessment/Plan Assessment/Plan Acute hypoxic respiratory failure Pulmonary edema Fluid overload End-stage renal disease on hemodialysis Friday. 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 Hypokalemia Recent GI bleed according to her sister PLAN: Consult nephrology for HD Fluid restriction Monitor closely Hypotension: Midodrine Elevated troponin: Cardiology consult Pulmonary edema: O2 prn, HD Monitor kidney function Full code Not stable for transfer Advanced directives discussed x 15 minutes 02/19/2025: Status post Nephrology this morning CT scan of the abdomen and pelvis on admission showed metastatic disease of the lungs and liver and left adrenal gland, the patient apparently knew about it before and did not want anymore workup Recent history of GI bleed according to her sister, recent admission to another hospital at [place], she was supposed to get endoscopy CEA is high at 500 Hematology oncology consult GI consult Protonix IV Discussed with the sister at the bedside Patient and family would like to be transferred to [place] to finish her workup there The patient is stable for transfer 02/20/2025: CT scan of the chest shows metastatic disease consistent with a CT scan of the abdomen and pelvis that she had earlier The patient says she does not want a biopsy done She also says that she would like the upper endoscopy to be done which was going to be done at [place] She would like to be transferred to [place] to continue workup there The patient is stable for transfer Transferred to [place] once a bed is available Hypokalemia: Replace p.o. Plan discussed with: Patient My Orders Orders - SOPHIA ARREOLA MD Procedure Category Date Status Time Pantoprazole PHA 02/20/25 In Process (Protonix) 10:00 Date of Service: February 20, 2025 Billing Provider: SOPHIA ARREOLA MD Common Visit Codes: [id number] INP/OBS CARE(HIGH) SOPHIA ARREOLA MD February 20, 2025 12:16
[2025-02-20] MEDS: POTASSIUM CHL 20 Meq TABLET PO ONE (13:48)
--- NOTE | 2025-02-20 15:08 | DVHPN2 ---
Progress Note - Dictate Date Seen: February 20, 2025 Medical Necessity Reason Pt with a Central, PICC or Fol: No Subjective Patient is feeling better she she only complains of generalized weakness. vital signs Vital Sign Date Time Temp Pulse Resp B/P (MAP) Pulse Ox O2 Delivery O2 Flow Rate FiO2 02/20/25 09:00 97.7 68 18 95/31 (52) 100 97.7 02/20/25 07:30 Oxymizer 2 N/A Total Intake and Output 02/19/25 02/19/25 02/20/25 15:00 23:00 07:00 Intake Total 100 ml 600 ml 240 ml Output Total 400 ml Balance 100 ml 200 ml 240 ml medications Current Medications Medications Dose Ordered Sig/Samia Route Start Time Stop Time Status Last Admin Dose Admin Midodrine 10 mg TID@0600,1200,1800 PO 02/18/25 06:00 02/20/25 12:20 10 MG Multivit/Ca Carb/ B Cmplx/FA/Prenat 1 tab DAILY PO 02/18/25 10:00 02/20/25 09:27 1 TAB Sevelamer HCl 800 mg TIDWM PO 02/18/25 08:00 02/20/25 12:20 800 MG Calcium Acetate 667 mg TIDWMEALS PO 02/18/25 08:00 02/20/25 12:20 667 MG Diagnostic Test (Pha) 1 strip ACHS 02/18/25 07:00 02/20/25 12:20 1 STRIP Insulin Human Regular ACHS SC 02/18/25 07:00 02/19/25 12:41 2 UNITS Dextrose 50 ml UD PRN IV 02/17/25 22:15 Sodium Chloride 10 ml Q8HR IV 02/18/25 06:00 02/20/25 05:39 10 ML Acetaminophen/ Hydrocodone Bitart 1 tab Q4HP PRN PO 02/17/25 22:15 Ondansetron HCl 4 mg Q4HP PRN IV 02/17/25 22:15 Docusate Sodium 100 mg BIDPRN PRN PO 02/17/25 22:15 Acetaminophen 650 mg Q6HP PRN PO 02/17/25 22:15 Atorvastatin Calcium 10 mg HS PO 02/18/25 22:00 02/19/25 21:17 10 MG Aspirin 81 mg DAILY PO 02/18/25 10:00 02/20/25 09:27 81 MG Nitroglycerin 0.4 mg Q5MINP PRN SL 02/17/25 23:30 Morphine Sulfate 2 mg Q30M PRN IV 02/17/25 23:30 Pantoprazole Sodium 40 mg DAILY IV 02/20/25 10:00 02/20/25 09:27 40 MG objective HEENT: No evidence of JVD, no oral ulcers. Pulmonary: Diminished on auscultation bilaterally Cardiovascular S1-S2, no S3 or S4 Abdomen: Bowel sounds positive, soft no rebound tenderness Skin: No rash Neurological: Alert, oriented, no focal weakness laboratory and microbiology Laboratory Tests 02/20/25 05:12 Test 02/20/25 05:12 Range/Units Serum Glucose 86 74-106 mg/dL Assessment/Plan Assessment: 1. End-stage renal disease on hemodialysis Friday. 2. Transient hypotension 3. Troponin elevation 4. Anemia of end-stage renal disease least 5. Chronic hypoxic respiratory failure 6. Hypertension 7. Diabetes type 2 8. Generalized weakness 9. Hypokalemia 10. 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 Plan: Dialysis was completed Friday. Next Friday Patient waiting for be transferred to [place] Oxygen supplementation four pulse ox more than 90% Oncology consult Check iron studies, hematology consult Hold off on FAUSTINO in view of underlying malignancy Fluid restriction less than 1 L per day Cardiology consult Plan discussed with: Patient MANN HOLLIS MD February 20, 2025 15:08
--- NOTE | 2025-02-20 22:44 | DVHINCON2 ---
Date Seen: February 20, 2025 Referring Physician Ranjan Reason for Consultation Positive Troponins History of Present Illness This is a 79-year-old female with a PMH of CHF, lung mass, pulmonary hypertension, diabetes, HTN, ESRD on HD, SDH, hypotension on midodrine presents to the ED with complaints of shortness of breath. Patient states symptoms have been progressively getting worse, also worsens with exertion. Apparently patient was dialyzed the day prior to presentation with-1 point L removed, upon evaluation in the ED patient noted to be hypotensive with BP 86/44 and was given IV fluid bolus for which improved. Patient found to have mildly elevated troponins trending 60, 51, 46. Denies any chest pain, palpitations. EKG reviewed and shows sinus rhythm with first-degree AV block at 77 beats per minute, PACs, nonspecific ST and T-wave abnormality unchanged from previous EKGs. Chest x-ray showed cardiomegaly with mild interstitial pulmonary edema with no pleural effusion. Patient was admitted to the hospital. I am asked to consult on this patient. Past Medical History As stated above Past Surgical History As stated above Family History: FH: cancer G8 MOTHER Allergies: Coded Allergies: Penicillins (Verified Allergy, Unknown, HIVES, 06/28/24) Home Meds Reported Medications Polyethylene Glycol 3350 (Miralax) 17 Gm Pow, 17 GM PO, POW 08/04/24 Midodrine Hcl (Midodrine Hcl) 5 Mg Tab, 5 MG PO, TAB 08/04/24 Cinacalcet HCl (Cinacalcet Hydrochloride) 90 Mg Tab, 90 MG PO, TAB 08/04/24 Sevelamer Hydrochloride (Sevelamer Hydrochloride) 800 Mg Tab, 800 MG PO, TAB 08/04/24 Cholecalciferol (VITAMIN D3) 2,000 Unit Tab, 1 TAB PO DAILY, #30 TAB 5 Refills 08/04/24 Pravastatin Sodium (PRAVACHOL TABLET) 20 Mg Tb, 1 TAB PO QPM, #90 TAB 1 Refill 06/29/24 Gabapentin (Gabapentin) 100 Mg Cap, 100 MG PO BID for 30 Days, MG 06/29/24 Current Medications Current Medications Medications (Trade) Dose Ordered Sig/Samia Route PRN Reason Start Time Stop Time Status Last Admin Pantoprazole Sodium (Protonix) 40 mg DAILY IV 02/20/25 10:00 02/20/25 09:27 Review of Systems Constitutional: No: Fever, Chills, Sweats, Weakness, Malaise, Other Eyes: No: Pain, Vision change, Conjunctivae inflammation, Eyelid inflammation, Other, Redness ENT: No: Ear pain, Ear discharge, Nose pain, Nose discharge, Nose congestion, Mouth pain, Mouth swelling, Throat pain, Throat swelling, Other Respiratory: No: Cough, Dry, , SOB with exertion, Wheezing, Hemoptysis, Pleuritic Pain, Sputum, Wheezing, Other positive: Shortness of breath Cardiovascular: ; No: Chest Pain Palpitations, Orthopnea, Paroxysmal Noc. Dyspnea, Edema, Lt Headedness, Other Gastrointestinal: No: Nausea, Vomiting, Abdominal Pain, Diarrhea, Constipation, Melena, Hematochezia, Other Genitourinary: No Dysuria, No Frequency, No Incontinence, No Hematuria, No Retention, No Other Musculoskeletal: neck pain; No: other, shoulder pain, arm pain, back pain, hand pain, leg pain, foot pain Skin: No: Rash, Lesions, Jaundice, Bruising, Other Neurological: Other (Dizziness, headache.); No: Weakness, Numbness, Incoordination, Change in speech, Confusion, Seizures Vital Signs Vital Signs Date Time Temp Pulse Resp B/P (MAP) Pulse Ox O2 Delivery O2 Flow Rate FiO2 02/20/25 09:00 97.7 68 18 95/31 (52) 100 97.7 02/20/25 07:30 Oxymizer 2 N/A Physical Exam GENERAL: Alert and oriented x 3. No acute distress. EYES: PERRL, EOMI. Anicteric. HENT: Moist mucous membranes. LUNGS: Diminished breath sounds. CARDIOVASCULAR: Regular rate and rhythm. ABDOMEN: Soft, nontender and nondistended. EXTREMITIES: No edema. NEUROLOGIC: No focal neurological deficits. SKIN: Warm, dry. Labs/Diagnostic Data Labs Test 02/20/25 09:42 02/20/25 05:12 02/19/25 06:57 02/18/25 19:47 Range/Units POC Glucose 109 H 70-106 mg/dl White Blood Count 10.0 4.4-10.8 10^3/uL Red Blood Count 2.90 L 4.0-5.20 10^6/uL Hemoglobin 8.3 L 12.2-16.2 g/dL Hematocrit 26.8 L 36.0-46.0 % Mean Corpuscular Volume 92.4 80.0-100.0 fL Mean Corpuscular Hemoglobin 28.7 28.0-32.0 pg Mean Corpuscular Hemoglobin Concent 31.0 L 32.0-36.0 g/dL Red Cell Distribution Width 18.7 H 11.8-14.3 % Platelet Count 251 140-450 10^3/uL Mean Platelet Volume 7.7 6.9-10.8 fL Neutrophils (%) (Auto) 37.0-80.0 % Lymphocytes (%) (Auto) 10.0-50.0 % Monocytes (%) (Auto) 0.0-12.0 % Basophils (%) (Auto) 0.0-2.0 % Neutrophils # (Auto) 1.6-8.6 10 ^3/uL Lymphocytes # (Auto) 0.4-5.4 10 ^3/uL Monocytes # (Auto) 0-1.3 10 ^3/uL Differential Total Cells Counted 100.0 100 Neutrophils % (Manual) 85 H 37.0-80.0 Band Neutrophils % (Manual) 5 Lymphocytes % (Manual) 4 L 10.0-50.0 Monocytes % (Manual) 3 0-12 Eosinophils % (Manual) 2 0-7 Basophils % (Manual) 0 0.0-2.0 Metamyelocytes % (manual) 1 Myelocytes % (Manual) 0 Promyelocytes % (Manual) 0 Blast Cells % (Manual) 0 Reactive Lymphocytes 0 Platelet Estimate Adequate Polychromasia Slight Anisocytosis (manual) Slight Sodium Level 143 136-145 mmol/L Potassium Level 3.3 L 3.5-5.1 mmol/L Chloride Level 102 98-107 mmol/L Carbon Dioxide Level 30 20-31 mmol/L Anion Gap 11 5-15 Blood Urea Nitrogen 20 9-23 mg/dL Creatinine 4.92 H 0.550-1.02 mg/dL Glomerular Filtration Rate Calc 9 >90 mL/min BUN/Creatinine Ratio 4.1 L 10.0-20.0 Serum Glucose 86 74-106 mg/dL Calcium Level 8.9 8.7-10.4 mg/dL Phosphorus Level 2.3 L 2.4-5.1 mg/dL Iron Level 72 50-170 ug/dL Total Iron Binding Capacity 153 L 250-425 ug/dL Percent Iron Saturation 47.1 15-50 % Ferritin > 3300.0 H 10-291 ng/mL Tumor Marker Alpha Fetoprotein 4.6 0.0-9.2 ng/mL Carcinoembryonic Antigen 500.00 <=5.0 ng/mL CA 125 Antigen 294.0 H 0.0-38.1 U/mL Test 02/18/25 05:49 02/17/25 20:50 02/17/25 17:25 Range/Units Eosinophils (%) (Auto) 1.3 0.0-7.0 % Eosinophils # (Auto) 0.1 0-0.8 10 ^3/uL Basophils # (Auto) 0 0-0.2 10 ^3/uL Nucleated Red Blood Cells 0.2 % Total Bilirubin 0.4 0.2-1.0 mg/dL Aspartate Amino Transferase (AST) 33 13-40 U/L Alanine Aminotransferase (ALT) < 9 7-40 U/L Alkaline Phosphatase 456 H 46-116 U/L Total Protein 6.4 5.7-8.2 g/dL Albumin 3.7 3.2-4.8 g/dL Hepatitis B Surface Antigen Negative Negative Troponin I High Sensitivity 46 *H </=34 ng/L B-Type Natriuretic Peptide 247.53 0-100 pg/mL Assessment Mildly elevated troponin. Acute on chronic HFpEF. Pulmonary hypertension. Hypotension. HLD. History of lung mass, with possible metastatic disease. ESRD on HD. Plan/Recommendation I agree with your ongoing assessment and care of plan. Patient has been seen by Rudy Fields CONTROL OFFICER on my behalf, him and I discussed the plan with the patient. Patient not a good candidate for ischemic workup given history of lung mass with metastasis, previous SDH. Plan of care discussed with patient and also does not want any invasive procedures done at this time. Continue conservative medical management. Aspirin and statin. Echocardiogram. Additional plan as per the hospital course. Plan discussed with: Patient NYHA Physical activity limitations: Class4(Severe)discomfort Date of Service: February 20, 2025 Billing Provider: BRIANA PALOMO MD Cardiology Common Codes: 56080-WEPPRJI INP/OBS CARE (High), 60693-[id number] CARE 30-74 MIN BRIANA PALOMO MD February 20, 2025 14:51
[2025-02-21] VITALS (7 sets, daily range): BP systolic 82–107; BP diastolic 42–59; PULSE 61–74; RESP 17–19; TEMP 97.9–98.6; O2SAT 96–100
[2025-02-21 07:13] LABS: Alanine Aminotransferase 10 U/L (7-40); Albumin 4.2 g/dL (3.2-4.8); Anion Gap 14 (5-15); Aspartate Aminotransferase 32 U/L (13-40); BUN/Creatinine Ratio 4.1 (10.0-20.0); Calcium 10.1 mg/dL (8.7-10.4); Carbon Dioxide 25 mmol/L (20-31); Chloride 103 mmol/L (98-107); Glucose 84 mg/dL (74-106); Magnesium 2.4 mg/dL (1.6-2.6); Sodium 142 mmol/L (136-145); Total Protein 7.1 g/dL (5.7-8.2)
[2025-02-21 07:14] LABS: Bilirubin, Total 0.3 mg/dL (0.2-1.0)
[2025-02-21 07:15] LABS: Alkaline Phosphatase 505 U/L (46-116); Blood Urea Nitrogen 26 mg/dL (9-23)
--- NOTE | 2025-02-21 08:20 | DVHPN2 ---
Progress Note - Dictate Date Seen: February 21, 2025 Has the PT tested + for MRSA If YES, has PT been informed?: No Medical Necessity Reason Pt with a Central, PICC or Fol: No Subjective No new complaints vital signs Vital Sign Date Time Temp Pulse Resp B/P (MAP) Pulse Ox O2 Delivery O2 Flow Rate FiO2 02/21/25 05:00 98.6 69 18 107/43 (64) 96 98.6 02/20/25 20:00 Oxymizer 2 N/A Total Intake and Output 02/20/25 02/20/25 02/21/25 15:00 23:00 07:00 Intake Total 240 ml 600 ml Balance 240 ml 600 ml medications Current Medications Medications Dose Ordered Sig/Samia Route Start Time Stop Time Status Last Admin Dose Admin Midodrine 10 mg TID@0600,1200,1800 PO 02/18/25 06:00 02/21/25 05:34 10 MG Multivit/Ca Carb/ B Cmplx/FA/Prenat 1 tab DAILY PO 02/18/25 10:00 02/20/25 09:27 1 TAB Sevelamer HCl 800 mg TIDWM PO 02/18/25 08:00 02/21/25 08:09 800 MG Calcium Acetate 667 mg TIDWMEALS PO 02/18/25 08:00 02/21/25 08:09 667 MG Diagnostic Test (Pha) 1 strip ACHS 02/18/25 07:00 02/21/25 05:35 1 STRIP Insulin Human Regular ACHS SC 02/18/25 07:00 02/19/25 12:41 2 UNITS Dextrose 50 ml UD PRN IV 02/17/25 22:15 Sodium Chloride 10 ml Q8HR IV 02/18/25 06:00 02/21/25 05:29 10 ML Acetaminophen/ Hydrocodone Bitart 1 tab Q4HP PRN PO 02/17/25 22:15 Ondansetron HCl 4 mg Q4HP PRN IV 02/17/25 22:15 Docusate Sodium 100 mg BIDPRN PRN PO 02/17/25 22:15 Acetaminophen 650 mg Q6HP PRN PO 02/17/25 22:15 Atorvastatin Calcium 10 mg HS PO 02/18/25 22:00 02/20/25 21:41 10 MG Aspirin 81 mg DAILY PO 02/18/25 10:00 02/20/25 09:27 81 MG Nitroglycerin 0.4 mg Q5MINP PRN SL 02/17/25 23:30 Morphine Sulfate 2 mg Q30M PRN IV 02/17/25 23:30 Pantoprazole Sodium 40 mg DAILY IV 02/20/25 10:00 02/20/25 09:27 40 MG objective Alert and oriented x 3 NAD Lungs: decreased air entry at bases CV: RR, no gallops Abdomen: soft, NT. normal bowel sounds No leg edema laboratory and microbiology Laboratory Tests 02/21/25 05:21 Test 02/21/25 05:21 Range/Units Serum Glucose 84 74-106 mg/dL Problem List 1. End-stage renal disease on hemodialysis Friday. 2. Transient hypotension, resolved 3. Troponin elevation 4. Anemia of end-stage renal disease least 5. Chronic hypoxic respiratory failure 6. Hypertension 7. Diabetes type 2 8. Generalized weakness 9. Hypokalemia 10. 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 Plan: Dialysis was completed Friday. Continue MWF schedule Patient waiting for be transferred to [place] Oxygen supplementation four pulse ox more than 90% Oncology consult Hold off on FAUSTINO in view of underlying malignancy Fluid restriction less than 1 L per day Plan discussed with: Other LETY ANDUJAR MD February 21, 2025 08:20
[2025-02-21 08:47] LABS: INR 1.08 (0.9-1.15); Partial Thromboplastin Time 28.2 SEC (24.5-34.5); Prothrombin Time 11.4 sec (9.3-11.8)
[2025-02-21 11:03] LABS: Basophils # (auto) 0.1 10 ^3/uL (0-0.2); Eosinophils # (auto) 0.2 10 ^3/uL (0-0.8); Hemoglobin 8.2 g/dL (12.2-16.2); Monocytes # (auto) 0.9 10 ^3/uL (0-1.3); Red Cell Distribution Width 19.1 % (11.8-14.3)
[2025-02-21 11:16] LABS: Basophils % (auto) 0.5 % (0.0-2.0); Eosinophils % (auto) 1.8 % (0.0-7.0); Hematocrit 27.6 % (36.0-46.0); Lymphocytes # (auto) 1.3 10 ^3/uL (0.4-5.4); Lymphocytes % (auto) 11.6 % (10.0-50.0); Mean Corpuscular Hemoglobin 28.3 pg (28.0-32.0); Mean Corpuscular Hgb Conc. 29.8 g/dL (32.0-36.0); Monocytes % (auto) 8.1 % (0.0-12.0); Neutrophils # (auto) 8.4 10 ^3/uL (1.6-8.6); Nucleated Red Blood Cells % 0.5 %; Platelet Count (auto) 227 10^3/uL (140-450); Red Blood Cells 2.91 10^6/uL (4.0-5.20); White Blood Cell 10.8 10^3/uL (4.4-10.8)
[2025-02-21] MEDS: LIDOCAINE 2%HCL (LOCAL ANESTH.) INJ 10ml MDV ONE (12:07)
[2025-02-21] MEDS: fentaNYL CITRATE 100 MCG/2 ML VL IV ONE (12:15)
[2025-02-21] MEDS: MIDAZOLAM HCL 2MG/2ML 2ml VIAL (1mg/ml) IV ONE (12:15)
[2025-02-21] MEDS: MIDAZOLAM HCL 2MG/2ML 2ml VIAL (1mg/ml) ONE (12:16)
[2025-02-21] MEDS: fentaNYL CITRATE 100 MCG/2 ML VL ONE (12:16)
--- NOTE | 2025-02-21 13:31 | DVHDS2 ---
Discharge Summary Date of Admission February 17, 2025 at 23:29 Date of Discharge: February 21, 2025 Labs/Diagnostic Data: Laboratory Results Test 02/21/25 11:30 02/21/25 09:44 02/21/25 05:21 02/20/25 05:12 POC Glucose 99 mg/dl (70-106) White Blood Count 10.8 10^3/uL (4.4-10.8) Red Blood Count 2.91 10^6/uL (4.0-5.20) Hemoglobin 8.2 g/dL (12.2-16.2) Hematocrit 27.6 % (36.0-46.0) Mean Corpuscular Volume 95.0 fL (80.0-100.0) Mean Corpuscular Hemoglobin 28.3 pg (28.0-32.0) Mean Corpuscular Hemoglobin Concent 29.8 g/dL (32.0-36.0) Red Cell Distribution Width 19.1 % (11.8-14.3) Platelet Count 227 10^3/uL (140-450) Mean Platelet Volume 8.0 fL (6.9-10.8) Neutrophils (%) (Auto) 78.0 % (37.0-80.0) Lymphocytes (%) (Auto) 11.6 % (10.0-50.0) Monocytes (%) (Auto) 8.1 % (0.0-12.0) Eosinophils (%) (Auto) 1.8 % (0.0-7.0) Basophils (%) (Auto) 0.5 % (0.0-2.0) Neutrophils # (Auto) 8.4 10 ^3/uL (1.6-8.6) Lymphocytes # (Auto) 1.3 10 ^3/uL (0.4-5.4) Monocytes # (Auto) 0.9 10 ^3/uL (0-1.3) Eosinophils # (Auto) 0.2 10 ^3/uL (0-0.8) Basophils # (Auto) 0.1 10 ^3/uL (0-0.2) Nucleated Red Blood Cells 0.5 % Prothrombin Time 11.4 sec (9.3-11.8) Prothrombin Time INR 1.08 (0.9-1.15) Activated Partial Thromboplast Time 28.2 SEC (24.5-34.5) Sodium Level 142 mmol/L (136-145) Potassium Level 4.0 mmol/L (3.5-5.1) Chloride Level 103 mmol/L (98-107) Carbon Dioxide Level 25 mmol/L (20-31) Anion Gap 14 (5-15) Blood Urea Nitrogen 26 mg/dL (9-23) Creatinine 6.41 mg/dL (0.550-1.02) Glomerular Filtration Rate Calc 6 mL/min (>90) BUN/Creatinine Ratio 4.1 (10.0-20.0) Serum Glucose 84 mg/dL (74-106) Calcium Level 10.1 mg/dL (8.7-10.4) Magnesium Level 2.4 mg/dL (1.6-2.6) Total Bilirubin 0.3 mg/dL (0.2-1.0) Aspartate Amino Transferase (AST) 32 U/L (13-40) Alanine Aminotransferase (ALT) 10 U/L (7-40) Alkaline Phosphatase 505 U/L (46-116) Total Protein 7.1 g/dL (5.7-8.2) Albumin 4.2 g/dL (3.2-4.8) Differential Total Cells Counted 100.0 (100) Neutrophils % (Manual) 85 (37.0-80.0) Band Neutrophils % (Manual) 5 Lymphocytes % (Manual) 4 (10.0-50.0) Monocytes % (Manual) 3 (0-12) Eosinophils % (Manual) 2 (0-7) Basophils % (Manual) 0 (0.0-2.0) Metamyelocytes % (manual) 1 Myelocytes % (Manual) 0 Promyelocytes % (Manual) 0 Blast Cells % (Manual) 0 Reactive Lymphocytes 0 Platelet Estimate Adequate Polychromasia Slight Anisocytosis (manual) Slight Test 02/19/25 06:57 02/18/25 19:47 02/18/25 05:49 02/17/25 20:50 Phosphorus Level 2.3 mg/dL (2.4-5.1) Iron Level 72 ug/dL (50-170) Total Iron Binding Capacity 153 ug/dL (250-425) Percent Iron Saturation 47.1 % (15-50) Ferritin > 3300.0 ng/mL (10-291) Tumor Marker Alpha Fetoprotein 4.6 ng/mL (0.0-9.2) Carcinoembryonic Antigen 500.00 ng/mL (<=5.0) CA 125 Antigen 294.0 U/mL (0.0-38.1) Hepatitis B Surface Antigen Negative (Negative) Troponin I High Sensitivity 46 ng/L (</=34) Test 02/17/25 17:25 B-Type Natriuretic Peptide 247.53 pg/mL (0-100) Other Laboratory Tests 02/21/25 09:44 02/21/25 05:21 Brief Hx & Hospital Course: Final diagnoses: Acute hypoxic respiratory failure Pulmonary edema Fluid overload End-stage renal disease on hemodialysis Friday. 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 Hypokalemia Recent GI bleed according to her sister 79-year-old female who was admitted for shortness of breaths and weakness and altered level of consciousness and abdominal pain Evaluation with a CT scan of the abdomen and pelvis showed metastatic disease involving the liver and lung in the drilling gland CT scan chest shows multiple bilateral pulmonary nodules consistent with pulmonary metastasis and multiple osteoblastic bony metastasis She has a chronic kidney disease on hemodialysis We had several discussions with her and with the family about the plan of care Initially the patient said she does not want to get further workup for the metastatic disease or biopsy Apparently she was advised at [facility] previously that she needed an EGD and she said she would like to have that done, she wanted it done at [facility] however and therefore we wanted to transfer her to [facility] however today her sister came and the patient also do not want further workup They are not interested in hospice either At this time the sister and the patient are asking that they want to go home however she is scheduled for dialysis today and they would like to have the dialysis done and then go home Her blood pressure was on the low side and she was given midodrine Once dialysis done today and if she is stable for discharge she will be going home to follow up as an outpatient The patient and family are not ready to consider hospice yet Condition at Discharge: Poor Final Diagnosis/Problems List Acute hypoxic respiratory failure Pulmonary edema Fluid overload End-stage renal disease on hemodialysis Friday. 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 Patient was counseled about treatment plan, medications, possible side effects, patientverbalized understanding. All questions were answered to the best of my ability. This discharge took greater then 30 minutes in planning, reviewing documentation, counseling the patient, and discussing with other team members." ASSESSMENT ASSESSMENT Assessment Date of Service: February 21, 2025 Billing Provider: SOPHIA ARREOLA MD Common Visit Codes: 92514-RJC/OBS DISCH DAY >30min SOPHIA ARREOLA MD February 21, 2025 13:31
[2025-02-21] MEDS: EPOETIN ALFA-EPBX 10,000 UNIT/1ML VIAL IV ONE (20:03)
[2025-02-21] MEDS: ALBUMIN 25% 100 ML IV PRN (20:03)
[2025-02-21] MEDS: SODIUM CHL 0.9% 1000 ML BAG XX ONE ×2 (20:04)
--- NOTE | 2025-02-21 20:47 | DVHPN2 ---
Progress Note - Dictate Date Seen: February 21, 2025 Has the PT tested + for MRSA If YES, has PT been informed?: No Medical Necessity Reason Pt with a Central, PICC or Fol: No Subjective No new complaints Undergoing hemodialysis vital signs Vital Sign Date Time Temp Pulse Resp B/P (MAP) Pulse Ox O2 Delivery O2 Flow Rate FiO2 02/21/25 20:00 Nasal Cannula* 2 28 02/21/25 17:00 98.1 64 17 90/59 (69) 99 98.1 Total Intake and Output 02/20/25 02/20/25 02/21/25 15:00 23:00 07:00 Intake Total 240 ml 600 ml Balance 240 ml 600 ml medications Current Medications Medications Dose Ordered Sig/Samia Route Start Time Stop Time Status Last Admin Dose Admin Midodrine 10 mg TID@0600,1200,1800 PO 02/18/25 06:00 02/21/25 17:43 10 MG Multivit/Ca Carb/ B Cmplx/FA/Prenat 1 tab DAILY PO 02/18/25 10:00 02/21/25 09:21 1 TAB Sevelamer HCl 800 mg TIDWM PO 02/18/25 08:00 02/21/25 17:43 800 MG Calcium Acetate 667 mg TIDWMEALS PO 02/18/25 08:00 02/21/25 17:43 667 MG Diagnostic Test (Pha) 1 strip ACHS 02/18/25 07:00 02/21/25 17:13 1 STRIP Insulin Human Regular ACHS SC 02/18/25 07:00 02/19/25 12:41 2 UNITS Dextrose 50 ml UD PRN IV 02/17/25 22:15 Sodium Chloride 10 ml Q8HR IV 02/18/25 06:00 02/21/25 13:23 10 ML Acetaminophen/ Hydrocodone Bitart 1 tab Q4HP PRN PO 02/17/25 22:15 Ondansetron HCl 4 mg Q4HP PRN IV 02/17/25 22:15 Docusate Sodium 100 mg BIDPRN PRN PO 02/17/25 22:15 Acetaminophen 650 mg Q6HP PRN PO 02/17/25 22:15 Atorvastatin Calcium 10 mg HS PO 02/18/25 22:00 02/20/25 21:41 10 MG Aspirin 81 mg DAILY PO 02/18/25 10:00 02/20/25 09:27 81 MG Nitroglycerin 0.4 mg Q5MINP PRN SL 02/17/25 23:30 Morphine Sulfate 2 mg Q30M PRN IV 02/17/25 23:30 Pantoprazole Sodium 40 mg DAILY IV 02/20/25 10:00 02/21/25 09:21 40 MG Albumin Human 100 ml @ 100 mls/hr Q15MP PRN IV 02/21/25 19:15 02/23/25 10:59 02/21/25 20:03 100 MLS/HR objective HEENT: No evidence of JVD, no oral ulcers. Nasal cannula Pulmonary: Lungs are clear on auscultation bilaterally Cardiovascular S1-S2, no S3 or S4 Abdomen: Bowel sounds positive, soft no rebound tenderness Neurological: Alert, oriented, no focal weakness laboratory and microbiology Laboratory Tests 02/21/25 09:44 02/21/25 05:21 Test 02/21/25 05:21 Range/Units Serum Glucose 84 74-106 mg/dL Problems(with codes): (1) Abnormal finding on GI tract imaging (2) Metastatic disease (3) Anemia (4) End stage renal disease on dialysis (5) Generalized weakness Prognosis Plan Patient and family decided to be discharged home at this time They do not want to be transferred to [place] but are not ready for hospice Patient had decided not to pursue any further workup CEA level about 500 and CA 125 also elevated discharge planning is in progress Overall prognosis remains guarded Plan discussed with: Other (None) ED OSCAR MD February 21, 2025 20:47
--- NOTE | 2025-02-21 23:14 | DVHPN2 ---
Progress Note - Dictate Date Seen: February 21, 2025 Has the PT tested + for MRSA If YES, has PT been informed?: Yes Medical Necessity Reason Pt with a Central, PICC or Fol: No vital signs Vital Sign Date Time Temp Pulse Resp B/P (MAP) Pulse Ox O2 Delivery O2 Flow Rate FiO2 02/21/25 20:00 Nasal Cannula* 2 28 02/21/25 20:00 61 02/21/25 17:00 98.1 17 90/59 (69) 99 98.1 Total Intake and Output 02/20/25 02/20/25 02/21/25 15:00 23:00 07:00 Intake Total 240 ml 600 ml Balance 240 ml 600 ml laboratory and microbiology Laboratory Tests 02/21/25 09:44 02/21/25 05:21 Test 02/21/25 05:21 Range/Units Serum Glucose 84 74-106 mg/dL Plan discussed with: Patient Total Time (mins): 30 Assessment Assessment metastasis to liver left adrenal gland and abdomen and pelvic mesenteryprimary source to be decided patient was advised to have a liver biopsy done but patient and her family had decided against it. As per rnpatient family stated theyknow patient has cancer. they do not want any further workup. ProblemList: End stage renal disease on dialysis Generalized weakness Hypotension Hypoxia Pneumonia Shortness of breath VICTOR HUGO CASTELLANO MD February 21, 2025 23:14
--- NOTE | 2025-02-21 23:46 | DVHPN2 ---
Progress Note - Dictate Date Seen: February 21, 2025 Has the PT tested + for MRSA If YES, has PT been informed?: Yes Medical Necessity Reason Pt with a Central, PICC or Fol: No Subjective Patient was seen and evaluated in follow up. No overnight events. Patient received HD. Patient and family decided to be discharged home at this time. They do not want to be transferred to [place] but are not ready for hospice. Patient had decided not to pursue any further workup. CEA level approx 500 and CA 125. Telemetry reviewed. vital signs Vital Sign Date Time Temp Pulse Resp B/P (MAP) Pulse Ox O2 Delivery O2 Flow Rate FiO2 02/21/25 20:00 Nasal Cannula* 2 28 02/21/25 20:00 61 02/21/25 17:00 98.1 17 90/59 (69) 99 98.1 Total Intake and Output 02/20/25 02/20/25 02/21/25 15:00 23:00 07:00 Intake Total 240 ml 600 ml Balance 240 ml 600 ml objective GENERAL: Alert and oriented x 3. No acute distress. EYES: PERRL, EOMI. Anicteric. HENT: Moist mucous membranes. LUNGS: Diminished breath sounds. CARDIOVASCULAR: Regular rate and rhythm. ABDOMEN: Soft, nontender and nondistended. EXTREMITIES: No edema. NEUROLOGIC: No focal neurological deficits. SKIN: Warm, dry. laboratory and microbiology Laboratory Tests 02/21/25 09:44 02/21/25 05:21 Test 02/21/25 05:21 Range/Units Serum Glucose 84 74-106 mg/dL Problem List Mildly elevated troponin. Acute on chronic HFpEF. Pulmonary hypertension. Hypotension. HLD. History of lung mass, with possible metastatic disease. ESRD on HD. Assessment/Plan Continued all current supportive medical care. Patient not a good candidate for ischemic workup given history of lung mass with metastasis, previous SDH. Plan of care discussed with patient and also does not want any invasive procedures done at this time. Continue conservative medical management. Aspirin and statin. Additional plan as per the hospital course. Plan discussed with: Patient BRIANA PALOMO MD February 21, 2025 23:46
[2025-02-22 12:07] LABS: CA 27.29 1017.5 U/mL (0.0-38.6)
== END 2025-02-21 22:08 | disposition home or self-care (01) | DRG 291 ==
LOC: EDBD 16:57 → ER 17:00 → OVERFLOW 23:29 → TELE-WESTW 02-18 02:58
PROVIDERS: ADMIT Internal Medicine Geriatric Medicine; ATTEND Internal Medicine Geriatric Medicine
PROC: 5A1D70Z Performance of Urinary Filtration, Intermittent, Less than 6 Hours Per Day (ICD-10-PCS; principal; 2025-02-19)
PROC: 5A1D70Z Performance of Urinary Filtration, Intermittent, Less than 6 Hours Per Day (ICD-10-PCS; 2025-02-21)
DX: I13.2 Hypertensive heart and chronic kidney disease with heart failure and with stage 5 chronic kidney disease, or end stage renal disease (principal); I50.33 Acute on chronic diastolic (congestive) heart failure; J96.21 Acute and chronic respiratory failure with hypoxia; N18.6 End stage renal disease; C78.7 Secondary malignant neoplasm of liver and intrahepatic bile duct; C78.6 Secondary malignant neoplasm of retroperitoneum and peritoneum; C79.51 Secondary malignant neoplasm of bone; C79.72 Secondary malignant neoplasm of left adrenal gland; C78.02 Secondary malignant neoplasm of left lung; C78.01 Secondary malignant neoplasm of right lung; J81.1 Chronic pulmonary edema; D63.1 Anemia in chronic kidney disease; E11.22 Type 2 diabetes mellitus with diabetic chronic kidney disease; E87.6 Hypokalemia; Z99.2 Dependence on renal dialysis; E78.5 Hyperlipidemia, unspecified; I44.0 Atrioventricular block, first degree; I95.89 Other hypotension; I27.20 Pulmonary hypertension, unspecified; Z88.0 Allergy status to penicillin; Z79.899 Other long term (current) drug therapy; Z83.3 Family history of diabetes mellitus
CPT/HCPCS: 36415; 71045; 71250; 74176; 80048; 80053; 82105; 82378; 82728; 82962; 83540; 83550; 83735; 83880; 84100; 84484; 85007; 85025; 85027; 85610; 85730; 86300; 86304; 86850; 86900; 86901; 87340; 90935; 93005; 96365; 99291; G0378; J1815; J2003; J2250; J2470; J3480; P9047